=== PATIENT | female | born 1975 | race Caucasian/White ===

== ENCOUNTER 2018-04-14 15:16 | Inpatient (IN) ==
[2018-04-14] MEDS ORDERED: ALBUTEROL 2.5mg/3ml (0.083%) NEB AEROSOL ONE (15:36)
[2018-04-14] MEDS ORDERED: METHYLPREDNISOLONE SOD SUCC 125mg/2ml INJECTION IVP ONE (15:36)
--- NOTE | 2018-04-14 15:41 | Emergency Department Report ---
SOB HPI - General Chief Complaint: Shortness of Breath/Dyspnea Stated Complaint: soa, cp Source: patient Mode of arrival: ambulatory Limitations: no limitations - History of Present Illness PT presents with a long standing asthma history and SOA for about 2 months. Pt has had several recent hospitalizations for the same with last being 1-2 weeks ago in [place]. PT reports she has been using her nebulizer every hour today without relief. She is allergic to Prednisone but can take Solu medrol. She states she feels like her lungs are "filling up". Denies fever. Does have a productive cough. MD Complaint: shortness of breath, cough Severity: similar to previous episodes Consistency/Duration: constant Relieving factors: nothing Known history of: asthma Treatment prior to arrival: bronchodilator - Related Data Home Medications Medication Instructions Recorded Confirmed ALPRAZolam [Xanax] 0.5 mg PO BID PRN 04/14/18 04/14/18 Albuterol/Ipratropium [Duoneb] 1 unit AEROSOL Q4H PRN 04/14/18 04/14/18 Levothyroxine Tab [Synthroid] 88 mcg PO ACB 04/14/18 04/14/18 Montelukast [Singulair] 10 mg PO HS 04/14/18 04/14/18 Promethazine + Cod Liq [Phenergan 5 ml PO Q6H PRN 04/14/18 04/14/18 + Codeine] Allergies Allergy/AdvReac Type Severity Reaction Status Date / Time prednisone Allergy Mild Hives Verified 04/14/18 15:22 Review of Systems All systems: reviewed and negative except as stated Constitutional: Reports: as per HPI Respiratory: Reports: as per HPI Physical Exam - Limitations Limitations: no limitations - General General appearance: alert, in distress - Normal Exams: Head:: Normocephalic without trauma Eyes:: Pupils are PERRLA w/ EOMI Cardiovascular:: Regular rate and rhythm, without murmur or gallop, Pulses 2+ all extremities, capillary refill, <2 seconds all extremities Abdomen:: Bowel sounds positive, soft, non-tender, non-distended Musculoskeletal:: No tenderness, or deformity noted, good range of motion, all extremities Integumentary:: No rashes Neurological:: Patient is alert, and oriented, cranial nerves, motor/sensory/ cerebellar, exams w/o gross deficits, to observation Psychiatric:: Patient exhibits, appropriate attention, emotion and affect - Respiratory Respiratory exam: Present: respiratory distress, wheezes - Expanded Respiratory Exam Location: Left: wheezes, Right: wheezes, Upper: wheezes, Lower: wheezes Course Vital Signs Temperature 97.4 F 04/14/18 15:22 Pulse Rate 103 H 04/14/18 15:22 Respiratory Rate 48 H 04/14/18 15:22 Blood Pressure 126/84 04/14/18 15:22 Pulse Oximetry 94 04/14/18 15:22 Temperature 97.4 F 04/14/18 15:22 Pulse Rate 103 H 04/14/18 15:22 Respiratory Rate 48 H 04/14/18 15:22 Blood Pressure 126/84 04/14/18 15:22 Pulse Oximetry 94 04/14/18 15:22 Shortness of Breath/Dyspnea - [facility] Narrative Medical decision making narrative: PT extremely anxious and agitated. She states that she has no insurance and cannot afford her medications. She is concerned from her last admission where she was told her SpO2 drops when she sleeps and she cannot afford supplemental O2 and therefore fears going to sleep. She says every time she wakes up she cannot breath and coughs until she "wets herself". She is concerned she will be admitted again. She denies trying to obtain any assistance from case management to help her afford her medications. She is to be taking Xanax but cannot afford it. Pt has a smoking history bu tnot current. does smoke. Pt provided Ativan and is able to rest but when she wakes she returns to being anxious which in turn results n cough. Pt does continue to have wheezes after 3 nebulized treatments and Solu Medrol. Hospitalist notified and will admit. - Differential Diagnosis Likely: acute exacerbation of chronic obstructive airways disease, congestive heart failure, community acquired pneumonia, asthma with exacerbation - Lab Data Attestation: I reviewed the patient's lab results. Result diagrams: 04/17/18 04:04 04/18/18 04:08 - Radiology Data Attestation: I reviewed the patient's radiology results. Disposition Clinical Impression: COPD Asthma with exacerbation Qualifiers: Asthma severity: moderate Asthma persistence: persistent Qualified Code(s): J45.41 - Moderate persistent asthma with (acute) exacerbation Disposition: 02 To OBS [facility] Condition: Stable for Transport - Seen By: midlevel
[2018-04-14] MEDS ORDERED: ALBUTEROL/IPRATROPIUM 2.5mg-0.5mg/3ml NEB AEROSOL ONE ×2 (15:43→17:01)
[2018-04-14] MEDS: SALINE FLUSH 10ml SYRINGE IVF PRN ×3 (15:45→21:44)
--- OUTSIDE RECORDS SUMMARY | 2018-04-14 15:49 | External Medical Summary | Continuity of Care Document ---
:1975 Author Organization [facility] [employer] [facility] Address [address] [place], [place] [id number] Phone Care Team Providers Name Role Phone Kiki Russell APRN Unavailable Unavailable Allergies, Adverse Reactions, Alerts Substance Reaction Severity Status prednisolone hives Unknown Active No Known Drug Allergies Unknown Active Medications Medication Instructions Dosage Effective Dates Status Comments (start - stop) AZITHROMYCIN (unknown take 2 tablet by ORAL - Active strength) route every day for 1 day Xanax 0.5 mg tablet take 1 tablet by oral 0.5 MG - Active route 3 times every day levothyroxine 88 mcg take 1 tablet by oral 88 MCG - Active tablet route every day ALBUTEROL SULFATE inhale 3 milliliter - Active (unknown strength) by nebulization route 2 times every day Problems Condition Effective Dates (start - stop) Clinical Status Subserosal leiomyoma of uterus Menorrhagia Secondary dysmenorrhea Pelvic and perineal pain Intramural leiomyoma of uterus Enlarged Uterus Enlarged Uterus 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 700 Provider: visit,[facility], [facility], (chief uterusMenorrhagia 7 Medical [place] low [address] complaint) Secondary Center Silvana R, 1522, dysmenorrheaPelvi , Joseph [address] [facility], and perineal 120, [place], [place], pain Charity [place], [id number], [place], [address]. [place] [id number] tel: tel:[phone] , [place]. [id number] tel: [phone] Marck [place] Enlarged Uterus Sep-2 Nixon Referring In Womens Ultrasound 0-201 [place]. 700 Provider: Health MONA, 7 [facility] Silvana R, 1522, , [place] [address] [place], 120, [place], [place], Charity [place], [id number], [place], [address]. [place] [id number] tel: tel:[phone] , [place]. [id number] tel: [phone] Marck [place]ak Intramural Sep-1 Nixon Referring In Womens leiomyoma of 2-201 [place]. 700 Provider: Health MONA, uterusEnlarged [address] [place] [address] [facility]ed [facility], 1522, UterusEncntr for , Joseph [address] [facility], color maker formulator exam 120, [place], [place], (general) Charity [place], , (routine) [place], [address]. [place] abnormal [id number] tel: tel:[phone] findingsPap Smear , [place]. [id number] Screening, Cervix tel: [phone] Marck [place] Dec-1 Russell In Womens 1-200 [place]. Health MONA, 7 700 [facility] [address] [place], [place], 120, [id number], [place], [place], tel:[phone] , [place]. tel: [phone] Family History Family Member Diagnosis Age At Onset No family history of Epilepsy Paternal Grandmother Cancer, colon No family history of Diabetes Brother Hodgkin's Lymphoma No family history of Lung Disease No family history of Stroke Father Cardiovascular Disease No family history of Ovarian Cancer No family history of Osteoporosis Maternal Grandmother Cancer, breast Father Diabetes Uncle Brain Cancer Son Urological Disorder Father Hypertension No family history of Kidney Problems Father Prostate Cancer No family history of Thyroid Disorder Immunizations Vaccine Date Status Comments Unknown Payers Payer name Insurance type Covered green party ID Authorization(s) [facility] [id number] Social History Type Description Quantity Date Captured Alcohol Use Details No Caffeine Use Details Unknown Tobacco Use Status Smoking Status Former smoker Non-Smoking Tobacco Use : No Details Available : No Details Available Details Vital Signs Date / Height Weight BMI Pulse Blood Temperature Respiratory Body Head BMI Time: Rate Pressure Rate Surface Circumference percentile Area 232.80 101 132/92 2017 lbs /min mm[Hg] 2:49 PM Chief Complaint And Reason For Visit Most recent encounter only, dated '07/09/2017 14:00'. Report Review ( chief complaint) Reason For Referral Reason For Referral Unknown Plan Of Care Date Type Action Status Future Order: Radiology Order Pelvic Ultrasound ([id number]) Ordered Date Type Problem Goal Intervention Status Start Date Unknown. History Of Present Illness Encounter Date Complaint History Of Present Illness This patient has no known history of present illness Functional Status Encounter Date Functional Assessment Cognitive Assessment Unknown Medications Administered Medication Instructions Dosage Effective Dates (start - stop) Status Comments Drug Treatment Unknown Instructions Date Instruction Additional Information Unknown
--- OUTSIDE RECORDS SUMMARY | 2018-04-14 15:49 | External Medical Summary | Continuity of Care Document ---
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) - (routine) w abnormal findings Pap Smear Screening, Cervix - Subserosal leiomyoma of uterus Menorrhagia Secondary dysmenorrhea Pelvic and perineal pain Enlarged Uterus - Asthma Active Procedures Procedure Date Unknown Results Test Name Date and Time Measure Units Reference Range Abnormal Flag Comments Unknown Advance Directives Directive Yes / No Effective Date File Name Unknown Encounters Encounter Practice Location Reason(s) Diagnoses Date Provider Care Team Description For Visit Members Marck Moody Jun- Nixon Referring In [facility] leiomyoma of 0-201 [place]. 700 Provider: Health [facility], uterusMenorrhagia 7 Medical [place] [address] [facility] Silvana Conteh 1522, dysmenorrheaPelvi , [place] [address], c and perineal 120, [place], [place], pain Charity [place], [id number], [place], [address]. [place] [id number] tel: tel: , [place]. [id number] tel: [phone] Marck Pathak Enlarged Uterus Sep-2 Nixon Referring In Womens Ultrasound 0-201 [place]. 700 Provider: [facility], [address] [place] [address] Silvana Conteh 1522, , [address] [place], 120, [place], [place], Charity Path[place], [id number], [place], [address]. [place] [id number] tel: tel: , [place]. [id number] tel: [phone] Marck Pathak Sep-1 Nixon In Womens 8-[address] [place]. 700 [facility], [address] [place] [address] [place], [place], 120, [place], [place], [id number], [place], [place] tel: , [place]. tel: [phone] Marck Pathak Intramural Sep-1 Nixon Referring In Womens leiomyoma of 2-201 [place]. 700 Provider: [facility], uterusEnlarged [address] [place] [address] UterusEnlarged [place] Silvana Conteh, 1522, UterusEncntr for , [address], urogynecology physician exam 120, [place], [place], (general) Charity [place], [id number], (routine) [place], [address]. [place] abnormal tel: tel: findingsPap Smear , [place]. [id number] Screening, Cervix tel: [phone] Marck [place]ak Dec-1 Russell In Womens 1-[address] [place]. [facility], [address] [place] [address], [facility] [place], 120, [id number], [place], [place], tel:[phone] , [place]. tel: [phone] Family History Family Member Diagnosis Age At [...] Unknown Payers Payer name Insurance type Covered constitution party ID Authorization(s) [facility] [id number] Social History Type Description Quantity Date Captured Unknown Vital Signs Date / Height Weight BMI Pulse Blood Temperature Respiratory Body Head BMI Time: Rate Pressure Rate Surface Circumference percentile Area Unknown Chief Complaint And Reason For Visit Unknown Chief Complaint And Reason For Visit Reason For Referral Reason For Referral Unknown Plan Of Care Date Type Action Status Future Order: Radiology Order Pelvic Ultrasound ([id number]) Ordered Date Type Problem Goal Intervention Status [...]
--- NOTE | 2018-04-14 16:34 | XRay Report ---
Indication: soa XR chest 2V: Comparison: None Technique: PA and lateral chest Findings: Patient showed normal heart, mediastinum and central vascularity. Lungs are clear. No acute bony findings noted. Impression: Unremarkable two-view chest. .
[2018-04-14] MEDS ORDERED: ALBUTEROL 2.5mg/0.5ml (0.5%) NEB AEROSOL ONE (17:04)
[2018-04-14] MEDS ORDERED: ONDANSETRON 4 MG/2 ML INJECTION IVP PRN (20:21)
[2018-04-14] MEDS ORDERED: ACETAMINOPHEN 325 MG TABLET PO PRN (20:21)
[2018-04-14] MEDS ORDERED: SENNA + DOCUSATE TABLET PO PRN (20:21)
--- NOTE | 2018-04-14 20:31 | History & Physical Report ---
History of Present Illness Date: 04/14/18 Chief complaint: dyspnea/cough HPI: Sherry is a 42-year-old female with history of asthma and possible COPD. She reports having no formal pulmonary testing done in the past and history of tobacco use discontinued 1-1/2 years ago. She has had difficulty breathing for the past couple of months and has been hospitalized at least once in [place] a couple weeks ago. Respiratory symptoms have continued to worsen since discharge with increasing dyspnea, cough productive of "stringy green sputum", exertional dyspnea limiting activity to only short distances and experiencing dyspnea at 5 steps, increased use of nebulizers such that she is now using nebulized treatments hourly without relief of symptoms. She denies fevers or chills. She reports dyspnea worsens if she lays flat primarily because cough worsens; she's been unable to sleep due to cough and dyspnea. She reports that she feels as though she is fighting to get air for the past 2 weeks. On evaluation in the emergency room she was mildly hypoxic with oxygen saturation dropping to 88% on room air and had persistent wheezing and cough despite nebulized treatments. Respiratory rate in the emergency room has been in the mid 30s and 40s at times and patient has had persistent low-grade tachycardia. She is admitted now for asthma exacerbation/status asthmaticus. Patient reports being allergic to prednisone indicating it causes mood swings and a rash. Review of Systems All systems PM: 10-point ROS was reviewed, no additional remarkable complaints except (no increasing in size in the right groin, a nodule in the left posterior scalp, headaches with ongoing cough. Remainder of review of systems negative or as per history of present illness.) Past Medical History Medical History: Medical History (Last Updated 04/14/18 @ 20:20 by Patsy Jimenez MD) Anxiety Asthma COPD (chronic obstructive pulmonary disease) Possible-no testing done Carpal tunnel syndrome of left wrist Hypothyroidism Medical History Updates: A1c 6.1 in recent past; possible tumor on her uterus which will require surgical intervention when respiratory status is stable Surgical History: section 1; bilateral tubal ligation Family History: Father-prostate cancer, thyroid cancer, hypertension, diabetes mellitus. Mother-rheumatoid arthritis, COPD. 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 Arcos Alternate [id number]'s Full code Medications Home Medications Medication Instructions Recorded Confirmed Type ALPRAZolam [Xanax] 0.5 mg PO BID PRN 04/14/18 04/14/18 History Albuterol/Ipratropium [Duoneb] 1 unit AEROSOL Q4H PRN 04/14/18 04/14/18 History Levothyroxine Tab [Synthroid] 88 mcg PO ACB 04/14/18 04/14/18 History Montelukast [Singulair] 10 mg PO HS 04/14/18 04/14/18 History Promethazine + Cod Liq [Phenergan 5 ml PO Q6H PRN 04/14/18 04/14/18 History + Codeine] Allergies Allergy/AdvReac Type Severity Reaction Status Date / Time prednisone Allergy Mild Hives Verified 04/14/18 15:22 Exam Vital Signs: Temperature 97.8 F 04/14/18 20:25 Pulse Rate 109 H 04/14/18 20:25 Respiratory Rate 22 04/14/18 20:25 Blood Pressure 118/58 04/14/18 20:25 Pulse Oximetry 93 -2 L 04/14/18 20:25 EXAM: General-anxious female, obese, coughing frequently, speaks in 2-3 words at a time HEENT-PERRL, EOMI without nystagmus, conjugate gaze, conjunctiva clear, sclera anicteric, facial structures symmetric, oropharynx clear, neck supple and without adenopathy Lungs-respirations moderately labored, diffuse inspiratory/expiratory wheezing, inspiratory effort triggers repetitive coughing Cardiac-regular rhythm, low-grade tachycardia, S1 and S2 Abd-obese, soft, nontender, bowel sounds diminished Ext-without edema Skin-without generalized rash although there are scars on the abdomen suggesting old freed or prior abscesses; benign-appearing nevus in the right groin Neuro-cranial nerves 3-12 intact, motor tone/power within normal limits, sensation intact 4 extremities Psych-anxious, apprehensive, cooperative Results - Labs CBC & Chem 7: 04/14/18 15:52 04/14/18 15:52 Labs: Liver enzymes unremarkable - Imaging and Cardiology Chest x-ray Status: image reviewed by me (CATALINA) Assessment and Plan (1) Status asthmaticus Current visit: Yes Status: Acute Assessment and Plan: Impression: Status asthmaticus Asthma exacerbation Hypoxia Bronchitis Generalized anxiety disorder Hypothyroidism Hypertension, borderline per history Plan: Jeanine is admitted as an inpatient due to hypoxia with status asthmaticus. Solu-Medrol initiated in the emergency room and will be continued every 6 hours ; patient was advised that she may experience mood swings with any steroid but need to breathe overrides the side effects she previously experienced with prednisone. Continue aggressive breathing treatments with albuterol/ipratropium; discussed with respiratory therapy. Pulmicort twice daily in conjunction with nebulized treatments. Sputum culture. May benefit from formal pulmonary testing or pulmonary consultation if symptoms do not brake quickly. Supplemental oxygen as needed. May initiate a Vapotherm on a trial basis to determine if it decreases work of breathing and allows patient to rest. Continue alprazolam and levothyroxine per home doses. Discussed with ER provider; has been provided some supplemental history when patient seen in ER. Discussed with RT. DVT Prophylaxis: Lovenox GI Prophylaxis: Pepcid Resuscitation Status: Full Code - Physician Narrative Narrative: Date: 04/14/18 Time: 2027 Hospital Course Summary Disclaimer: The visit summary below is not to be considered part of the above Progress Note. Hospital Course: 04/14/18 Jeanine is admitted as an inpatient due to hypoxia with status asthmaticus. Solu-Medrol initiated in the emergency room and will be continued every 6 hours ; patient was advised that she may experience mood swings with any steroid but need to breathe overrides the side effects she previously experienced with prednisone. Continue aggressive breathing treatments with albuterol/ipratropium; discussed with respiratory therapy. Pulmicort twice daily in conjunction with nebulized treatments. Sputum culture. May benefit from formal pulmonary testing or pulmonary consultation if symptoms do not brake quickly. Supplemental oxygen as needed. May initiate a Vapotherm on a trial basis to determine if it decreases work of breathing and allows patient to rest. Continue alprazolam and levothyroxine per home doses.
[2018-04-14 20:32] VITALS: BMI 43.1
[2018-04-14] MEDS: ALBUTEROL 2.5mg/3ml (0.083%) NEB AEROSOL PRN (21:01)
[2018-04-14] MEDS: NS 1,000 ML IV SCH (21:41)
[2018-04-14] MEDS: MONTELUKAST 10 MG TABLET PO SCH (21:42)
[2018-04-14] MEDS: METHYLPREDNISOLONE SOD SUCC 125mg/2ml INJECTION IVP SCH (21:42)
[2018-04-14] MEDS: FAMOTIDINE 20 MG TABLET PO SCH (21:42)
[2018-04-14] MEDS: PROMETHAZINE/CODEINE ORAL LIQUID 5ml PO PRN (21:44)
[2018-04-15] MEDS: ALBUTEROL/IPRATROPIUM 2.5mg-0.5mg/3ml NEB AEROSOL SCH ×7 (01:21→22:53)
[2018-04-15] MEDS: METHYLPREDNISOLONE SOD SUCC 125mg/2ml INJECTION IVP SCH ×4 (03:07→21:13)
[2018-04-15] MEDS: LEVOTHYROXINE 88 MCG TABLET PO SCH (06:29)
[2018-04-15] MEDS: PROMETHAZINE/CODEINE ORAL LIQUID 5ml PO PRN ×3 (06:30→21:14)
[2018-04-15] MEDS: ALPRAZolam 0.5 MG TABLET PO PRN ×2 (06:43→20:21)
[2018-04-15] MEDS: ALBUTEROL 2.5mg/3ml (0.083%) NEB AEROSOL PRN (06:50)
[2018-04-15] MEDS ORDERED: ALBUTEROL/IPRATROPIUM 2.5mg-0.5mg/3ml NEB AEROSOL SCH (07:00)
[2018-04-15] MEDS: NS 1,000 ML IV SCH ×3 (08:12→23:36)
[2018-04-15] MEDS: FAMOTIDINE 20 MG TABLET PO SCH ×2 (09:39→21:12)
[2018-04-15] MEDS: ENOXAPARIN 40 MG/0.4 ML INJECTION SQ SCH (09:39)
--- NOTE | 2018-04-15 11:13 | Progress Note ---
- Date 04/15/18 Subjective: Sherry is seen this morning while resting in her bed. She reports that she is very tired but states that her breathing seems to be a little better today. She does admit to significant bouts of coughing, one of which was so severe this morning that she soiled her bed. She denies any fevers, chills, chest pain , abdominal pain, nausea, vomiting or dysuria. Her appetite is stable and bowels are moving. She remains tachypneic despite being on vapotherm. Labs today were relatively unremarkable with mild hypophosphoremia at 2.4 and hyperglycemia most likely secondary to steroids effect. Objective Vital signs: Temperature 96.1 F L 04/15/18 08:23 Pulse Rate 98 04/15/18 08:23 Respiratory Rate 24 04/15/18 08:23 Blood Pressure 126/66 04/15/18 08:23 Pulse Oximetry 97 04/15/18 08:23 Height/Weight/BMI: Weight 230 lb 9.656 oz Comments: resting in bed. - Constitutional Present: no acute distress, well nourished, well developed, morbidly obese, cooperative - Routine HEENT Exam Head: Present: normocephalic, atraumatic Eye: Present: PERRL. Absent: conjunctival icterus ENT: Present: mucous membranes moist, oropharynx clear - Routine Respiratory Exam Present: decreased breath sounds, prolonged expiratory phase, respiratory distress (mild), wheezes, diminished air movement Comments: Tachypnea - Routine Cardiovascular Exam Present: RRR, S1, S2 - Routine Abdominal Exam Present: soft, normoactive bowel sounds, non tender - Routine Extremities Exam Present: no edema, full ROM, pulses intact - Routine Back/Spine/Pelvis Exam Back/Spine: Present: full ROM. Absent: vertebral tenderness - Routine Musculoskeletal Exam Musculoskeletal: Present: no clubbing or cyanosis, moving extremities well - Routine Skin Exam Present: intact, dry, warm Comments: Afebrile. - Routine Neurological Exam Present: alert, oriented X3, moving all extremities, hearing grossly intact, normal speech - Routine Lymphatic Exam Lymphatic: Absent: lymphedema - Routine Psychiatric Exam Present: cooperative Results - Labs CBC & Chem 7: 04/14/18 15:52 04/15/18 04:09 Microbiology Results: Microbiology 04/14/18 21:47 Sputum, Expectorated Gram Stain - Final 04/14/18 21:47 Sputum, Expectorated Sputum Culture - Final Assessment and Plan (1) Status asthmaticus Current visit: Yes Status: Acute Assessment and Plan: Impression: Status asthmaticus Asthma exacerbation Hypoxia Bronchitis Generalized anxiety disorder Hypothyroidism Hypertension, borderline per history Plan - 04/15/18 Some improvement in breathing today as compared to yesterday. Significant episodes of nonproductive coughing. Continue respiratory cares including Solu-Medrol 125mg IV Q6H, DuoNeb and Pulmicort treatments and vapotherm. Supplemental oxygen as needed. Wean as able - patient does not use oxygen at home. May benefit from formal pulmonary testing or pulmonary consultation if symptoms do not break quickly. Continue alprazolam and levothyroxine per home doses. Hyperglycemia noted - most likely secondary to steroid effect. Monitor closely. Lovenox for DVT prophylaxis. Pepcid for GI protection and prophylaxis. Recheck labs in AM to monitor blood counts, electrolytes and renal function. DVT Prophylaxis: Lovenox GI Prophylaxis: Pepcid Resuscitation Status: Full Code - Time spent with patient Time with patient PN: 25 minutes - Physician Narrative Physician: Patsy Jimenez MD Narrative: Date: 04/15/18 Time: 1834 I have independently evaluated and examined this patient. I reviewed the chart, the patient's history, and the FINANCIAL [employer]IRE[employer] PL[employer] SPECIALIST/PA's documented findings as above. We discussed and formulated the assessment and plan as above with additions as below: Sherry was resting when seen earlier this afternoon. She reports decreased cough and wheezing with improvement in ability to breathe although she still coughing up thick sputum. She's been on Vapotherm overnight and prefers standard nasal cannula oxygen although RT felt there was clear benefit when she was converted to VT. NAD, resting comfortably Respirations nonlabored with significant improvement in airflow today, inspiration does not trigger cough, faint wheezing on expiration. Scheduled every 4 hours DuoNeb; patient required supplemental albuterol treatments twice overnight but has not needed additional treatment since 7 AM this morning. Plan social work consultation as patient has difficulty with medications due to cost and lack of insurance. [facility]. Sputum culture rejected due to multiple epithelial cells noted on original sample. Respiratory viral panel will be checked. Hospital Course Summary Disclaimer: The visit summary below is not to be considered part of the above Progress Note. Hospital Course: 04/14/18 Jeanine is admitted as an inpatient due to hypoxia with status asthmaticus. Solu-Medrol initiated in the emergency room and will be continued every 6 hours ; patient was advised that she may experience mood swings with any steroid but need to breathe overrides the side effects she previously experienced with prednisone. Continue aggressive breathing treatments with albuterol/ipratropium; discussed with respiratory therapy. Pulmicort twice daily in conjunction with nebulized treatments. Sputum culture. May benefit from formal pulmonary testing or pulmonary consultation if symptoms do not brake quickly. Supplemental oxygen as needed. May initiate a Vapotherm on a trial basis to determine if it decreases work of breathing and allows patient to rest. Continue alprazolam and levothyroxine per home doses. Plan - 04/15/18 Some improvement in breathing today as compared to yesterday. Significant episodes of nonproductive coughing. Continue respiratory cares including Solu-Medrol 125mg IV Q6H, DuoNeb and Pulmicort treatments and vapotherm. Supplemental oxygen as needed. Wean as able - patient does not use oxygen at home. May benefit from formal pulmonary testing or pulmonary consultation if symptoms do not brake quickly. Continue alprazolam and levothyroxine per home doses. Hyperglycemia noted - most likely secondary to steroid effect. Monitor closely. Lovenox for DVT prophylaxis. Pepcid for GI protection and prophylaxis. Recheck labs in AM to monitor blood counts, electrolytes and renal function.
[2018-04-15] MEDS: BUDESONIDE INH.SOLN 0.5mg/2ml NEB AEROSOL SCH ×2 (11:25→19:20)
[2018-04-15] MEDS: SODIUM CL 3% INHAL.SOLN 15ml NEB AEROSOL SCH ×2 (11:44→11:46)
[2018-04-15] MEDS ORDERED: PNEUMOCOCCAL 23 VACCINE 0.5ml INJECTION IM ONE (17:28)
[2018-04-15] MEDS: MONTELUKAST 10 MG TABLET PO SCH (21:12)
[2018-04-15] MEDS: INSULIN ASPART 100unit/ml INJECTION SQ PRN (21:13)
[2018-04-16] MEDS: METHYLPREDNISOLONE SOD SUCC 125mg/2ml INJECTION IVP SCH ×5 (03:05→22:44)
[2018-04-16] MEDS: NS 1,000 ML IV SCH ×2 (06:21→20:26)
[2018-04-16] MEDS: LEVOTHYROXINE 88 MCG TABLET PO SCH (06:22)
[2018-04-16] MEDS: ALBUTEROL/IPRATROPIUM 2.5mg-0.5mg/3ml NEB AEROSOL SCH ×4 (06:34→21:46)
[2018-04-16] MEDS: BUDESONIDE INH.SOLN 0.5mg/2ml NEB AEROSOL SCH ×2 (06:35→21:46)
[2018-04-16] MEDS: ALPRAZolam 0.5 MG TABLET PO PRN ×2 (06:57→17:36)
[2018-04-16] MEDS: ENOXAPARIN 40 MG/0.4 ML INJECTION SQ SCH (09:24)
[2018-04-16] MEDS: FAMOTIDINE 20 MG TABLET PO SCH ×2 (09:26→20:33)
--- NOTE | 2018-04-16 10:10 | Pulmonology Consult Note ---
History of Present Illness Consult date: 04/16/18 Requesting physician: Tatiana Charles Reason for consult: dyspnea, asthma Chief complaint: short of breath History of present illness: HPI: Sherry is a 42-year-old female with history of asthma and possible COPD. She reports having no formal pulmonary testing done in the past and history of tobacco use discontinued 1-1/2 years ago after a 15 pack-year history. She has had difficulty breathing for the past couple of months and has been hospitalized at least once in [place] a couple weeks ago. She states that for 2 months she cannot walk across the floor at home without having shortness of breath. She coughs and has a lot of mucus drainage from her sinuses, along with headaches and sinus pressure. she has been hospitalized at least 5 times in the past year for exacerbation of asthma. Her only home asthma med is neb albuterol. She thinks she needs a new nebulizer as well. Respiratory symptoms have continued to worsen since last discharge with increasing dyspnea, cough productive of "stringy green sputum", exertional dyspnea limiting activity to only short distances and experiencing dyspnea at 5 steps, increased use of nebulizers such that she is now using nebulized treatments hourly without relief of symptoms. She denies fevers or chills. She reports dyspnea worsens if she lays flat primarily because cough worsens; she's been unable to sleep due to cough and dyspnea. She reports that she feels as though she is fighting to get air for the past 2 weeks. On evaluation in the emergency room she was mildly hypoxic with oxygen saturation dropping to 88% on room air and had persistent wheezing and cough despite nebulized treatments. Respiratory rate in the emergency room has been in the mid 30s and 40s at times and patient has had persistent low-grade tachycardia. She is admitted now for asthma exacerbation/ status asthmaticus. Patient reports being allergic to prednisone indicating it causes mood swings and a rash. Review of Systems All systems PM: 10-point ROS was reviewed, no additional remarkable complaints except (no increasing in size in the right groin, a nodule in the left posterior scalp, headaches with ongoing cough. Remainder of review of systems negative or as per history of present illness.) Past Medical History Medical History: Medical History (Last Updated 04/14/18 @ 20:20 by Patsy Jimenez MD) Anxiety Asthma COPD (chronic obstructive pulmonary disease) Possible-no testing done Carpal tunnel syndrome of left wrist Hypothyroidism Medical History Updates: A1c 6.1 in recent past; possible tumor on her uterus which will require surgical intervention when respiratory status is stable Surgical History: section 1; bilateral tubal ligation Family History: Father-prostate cancer, thyroid cancer, hypertension, diabetes mellitus. Mother-rheumatoid arthritis, COPD. 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[employer]) [facility] Medical History (Last Updated 04/14/18 @ 20:20 by Patsy Jimenez MD) Anxiety (Acute Medical) Asthma (Acute Medical) COPD (chronic obstructive pulmonary disease) (Acute Medical) Possible-no testing done Carpal tunnel syndrome of left wrist (Acute Medical) Hypothyroidism (Acute Medical) Medical History Updates: A1c 6.1 in recent past; possible tumor on her uterus which will require surgical intervention when respiratory status is stable Surgical History: section 1; bilateral tubal ligation - Social History Smoking status: Former smoker Packs-years: 10 Substance use type: does not use Alcohol intake frequency: does not drink 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[employer]) Medications Home Medications Medication Instructions Recorded Confirmed Type ALPRAZolam [Xanax] 0.5 mg PO BID PRN 04/14/18 04/14/18 History Albuterol/Ipratropium [Duoneb] 1 unit AEROSOL Q4H PRN 04/14/18 04/14/18 History Levothyroxine Tab [Synthroid] 88 mcg PO ACB 04/14/18 04/14/18 History Montelukast [Singulair] 10 mg PO HS 04/14/18 04/14/18 History Promethazine + Cod Liq [Phenergan 5 ml PO Q6H PRN 04/14/18 04/14/18 History + Codeine] Allergies Allergy/AdvReac Type Severity Reaction Status Date / Time prednisone Allergy Mild Hives Verified 04/14/18 15:22 Exam Vital signs: Temperature 97.5 F 04/16/18 07:29 Pulse Rate 95 04/16/18 07:29 Respiratory Rate 20 04/16/18 07:29 Blood Pressure 130/69 04/16/18 07:29 Pulse Oximetry 98 04/16/18 07:29 - Constitutional mild distress, obese - Routine HEENT Exam Head: Present: normocephalic, atraumatic Eye: Absent: conjunctival icterus Nose: moist mucous membranes - Routine Neck Exam Present: supple. Absent: JVD - Routine Respiratory Exam Present: accessory muscle use, prolonged expiratory phase, wheezes - Routine Cardiovascular Exam Present: RRR - Routine Abdominal Exam Present: soft. Absent: guarding - Routine Extremities Exam Absent: cyanosis, clubbing - Routine Skin Exam Absent: rash - Routine Neurological Exam Present: alert, oriented X3. Absent: motor deficit Results - Laboratory Findings CBC and BMP: 04/16/18 04:32 04/16/18 04:32 Abnormal lab findings: Abnormal Labs 04/15/18 04/16/18 04/16/18 04:09 04:32 04:32 WBC 20.0 H D RBC 3.99 L Hgb 11.8 L D Plt Count 446 H Neutrophils % (Manual) 87.0 H Lymphocytes % (Manual) 8.0 L Neutrophils # (Manual) 17.4 H Chloride 109 H 109 H Creatinine 0.6 L 0.6 L Glucose 169 H 148 H Phosphorus 2.4 L - Diagnostic Findings Chest x-ray: report reviewed Assessment and Plan (1) Acute hypoxemic respiratory failure Status: Acute Assessment and plan: Currently requiring Vapotherm, 25 LPM, FIO2 40%. Wean to HFNC as tolerated. Consider CTA given normal CXR Current Visit: Yes (2) Status asthmaticus Status: Acute Assessment and plan: Cannot rule out the possibility of asthma-COPD overlap syndrome. She did have a modest smoking history in the past. I agree with methylprednisolone 125 mg IV q6H Continue albuterol/iprat q4H, Budesonide 0.5 mg BID Current Visit: Yes (3) Sinusitis Status: Acute Assessment and plan: Recommend empiric antibiotics, 3rd gen cephalosporin or Amox/clav would be most appropriate. Recommend prolonged course (at least 14 days) This is likely contributing to recurring exacerbations May need ENT consult at some point Current Visit: Yes - Time Spent With Patient Total time spent is greater than 50% in coordination of care (as documented) at patient's floor/unit and/or counseling patient: 25 - 35 minutes
[2018-04-16] MEDS ORDERED: SALINE FLUSH 10ml SYRINGE ONE (12:39)
[2018-04-16] MEDS ORDERED: IOHEXOL 350mg/ml 75ml INJECTION ONE (12:39)
--- NOTE | 2018-04-16 13:02 | Progress Note ---
- Date 04/16/18 Subjective: The patient was seen this afternoon in her room. She states her breathing is a little bit better than when she came in. She continues to have a cough and occasionally has incontinence of urine from cough. She states she feels weak. She has a chronic frontal headache. She is eating and drinking okay. She has not had a bowel movement since admission. She states she alternates between constipation and diarrhea at home. She complains of a "knot" in her abdomen and points to the right upper quadrant. She states that area is tender and she notices this knot more so when she is standing up. She states she has been hospitalized 5 times this past year with shortness of breath and cough requiring oxygen. She does not have insurance and this has complicated her treatment course. She has not been able to work for the past several months due to dyspnea on exertion and recurrent hospitalizations. Objective Vital signs: Temperature 97.5 F 04/16/18 07:29 Pulse Rate 95 04/16/18 07:29 Respiratory Rate 24 04/16/18 10:12 Blood Pressure 130/69 04/16/18 07:29 Pulse Oximetry 98 04/16/18 10:12 Height/Weight/BMI: Weight 106.2 kg Comments: Afebrile, heart rate 95, respirations 20, blood pressure 130/69, O2 sat 98% on high flow nasal cannula flow rate of 25 and FiO2 of 40%. Respiratory rate is 20 Weight is 106.2 kg up from 103.5 kg on admission GEN-alert, oriented, mild respiratory distress, frequent cough HEENT-oropharynx is moist NECK-supple, no lymphadenopathy CV-regular rate and rhythm CHEST-wheezing throughout, occasional coarse breath sounds ABD-soft, obese, minimal tenderness in the right upper quadrant, no rebound or guarding, no masses, normal bowel sounds -no Sneed EXT-no edema NEURO-no focal deficits SKIN-warm and dry Results - Labs CBC & Chem 7: 04/16/18 04:32 04/16/18 04:32 Microbiology Results: Microbiology 04/14/18 21:47 Sputum, Expectorated Gram Stain - Final 04/14/18 21:47 Sputum, Expectorated Sputum Culture - Final Assessment and Plan (1) Status asthmaticus Current visit: Yes Status: Acute Assessment and Plan: Impression: Status asthmaticus Asthma exacerbation Possible COPD (family history of COPD and her 50-year-old sister and in her mother) Acute hypoxic respiratory failure Possible sinusitis Bronchitis Generalized anxiety disorder Hypothyroidism Hypertension, borderline per history Hyperglycemia secondary to steroids Hypophosphatemia Leukocytosis-occlusive secondary to steroids Plan - 04/16/18 The patient reports some mild improvement in breathing compared to admission. She continues to require Vapotherm with significant oxygen and high flow requirements. Dr. Kruse was consulted secondary to the patient's recurrent hospitalizations with hypoxia and probable asthma exacerbation. He did recommend CTA chest. He did recommend CT sinuses to rule out sinusitis, and if present treat for 2 weeks. He agreed with current steroid treatment. He recommended follow-up as an outpatient for formal pulmonary function tests and treatment of asthma +/- COPD. Consult case management regarding lack of insurance. Change to carb consistent diet. Recheck phosphorus today Continue Lovenox for DVT prophylaxis Continue to wean oxygen as tolerated Increase activity as tolerated DC IV fluids when taking by mouth well Repeat CBC and renal panel tomorrow. Discussed today with the patient, her nurse, and Dr. Kruse. DVT Prophylaxis: Lovenox GI Prophylaxis: Pepcid Resuscitation Status: Full Code - Physician Narrative Narrative: Date: 04/16/18 Time: 1258 Hospital Course Summary Disclaimer: The visit summary below is not to be considered part of the above Progress Note. Hospital Course: 04/14/18 Jeanine is admitted as an inpatient due to hypoxia with status asthmaticus. Solu-Medrol initiated in the emergency room and will be continued every 6 hours ; patient was advised that she may experience mood swings with any steroid but need to breathe overrides the side effects she previously experienced with prednisone. Continue aggressive breathing treatments with albuterol/ipratropium; discussed with respiratory therapy. Pulmicort twice daily in conjunction with nebulized treatments. Sputum culture. May benefit from formal pulmonary testing or pulmonary consultation if symptoms do not brake quickly. Supplemental oxygen as needed. May initiate a Vapotherm on a trial basis to determine if it decreases work of breathing and allows patient to rest. Continue alprazolam and levothyroxine per home doses. Plan - 04/15/18 Some improvement in breathing today as compared to yesterday. Significant episodes of nonproductive coughing. Continue respiratory cares including Solu-Medrol 125mg IV Q6H, DuoNeb and Pulmicort treatments and vapotherm. Supplemental oxygen as needed. Wean as able - patient does not use oxygen at home. May benefit from formal pulmonary testing or pulmonary consultation if symptoms do not brake quickly. Continue alprazolam and levothyroxine per home doses. Hyperglycemia noted - most likely secondary to steroid effect. Monitor closely. Lovenox for DVT prophylaxis. Pepcid for GI protection and prophylaxis. Recheck labs in AM to monitor blood counts, electrolytes and renal function.
--- NOTE | 2018-04-16 13:12 | CT Scan Report ---
Indication: hypoxia, asthma exacerbation, rule out PE, PROCEDURE: CT angio pulm emboli: Encounter: Initial Comparison: None. Findings: Technique: Following rapid administration of intravenous contrast, multiple contiguous helical axial slices were obtained from the level of the diaphragm to the level the thoracic inlet. This volumetric data set then served as the basis for further three-dimensional volume rendered reconstructions in sagittal and coronal planes. Automated Exposure Control and Iterative Reconstruction dose reducing techniques were utilized. FINDINGS: There is a trace amount of bibasilar somewhat linear atelectasis and/or scarring. There is no pulmonary embolism. The trachea and mainstem bronchi are patent. There is no consolidation, pleural effusion, or pneumothorax. There are no masses or nodules seen in the lung parenchyma. There is no axillary, hilar, or mediastinal lymphadenopathy. The heart size is normal. There is no pericardial effusion. The visualized portions of the thoracic aorta and major branch vessels of the aortic arch fills with contrast homogenously and are unremarkable. The visualized portions of the upper abdominal structures are grossly unremarkable. The visualized bones are unremarkable. IMPRESSION: Small amount of dependent atelectasis and/or scarring. No lobar consolidation or pleural effusion. No evidence for pulmonary embolus. .
--- NOTE | 2018-04-16 13:13 | CT Scan Report ---
Indication: rule out sinusitis, cough, hypoxia PROCEDURE: CT sinus wo con: Encounter: Initial Comparison: None. Three-dimensional volume rendered reconstructions were performed. Automated Exposure Control and Iterative Reconstruction dose reducing techniques were utilized. FINDINGS: The maxillary sinuses are clear. The frontal sinuses and ethmoid sinuses are clear. The sphenoidal sinuses are clear. The osseous nasal septum is deviated to the left anteriorly. There is no definite obstruction of the osteomeatal unit on either the left or right side. No definite bony destruction. The periorbital fat appears preserved. No definite disruption of the lamina papyracea. IMPRESSION: Moderate nasal septal deviation to the left anteriorly. No evidence for acute or chronic sinusitis. No evidence for bony destruction or osteomeatal unit obstruction. .
[2018-04-16] MEDS: PROMETHAZINE/CODEINE ORAL LIQUID 5ml PO PRN ×2 (13:15→20:31)
[2018-04-16] MEDS: AZITHROMYCIN 500 MG TABLET PO SCH (17:36)
[2018-04-16] MEDS: SALINE FLUSH 10ml SYRINGE IVF PRN (17:36)
[2018-04-16] MEDS: PHOSPHORUS 250 MG TABLET PO SCH ×2 (17:36→20:32)
[2018-04-16] MEDS ORDERED: ALPRAZolam 0.5 MG TABLET PO ONE (20:25)
[2018-04-16] MEDS: MONTELUKAST 10 MG TABLET PO SCH (20:32)
[2018-04-16] MEDS: INSULIN ASPART 100unit/ml INJECTION SQ PRN (20:34)
[2018-04-17] MEDS: SALINE FLUSH 10ml SYRINGE IVF PRN ×2 (02:27→03:54)
[2018-04-17] MEDS: METHYLPREDNISOLONE SOD SUCC 125mg/2ml INJECTION IVP SCH ×5 (03:52→23:16)
[2018-04-17] MEDS: LEVOTHYROXINE 88 MCG TABLET PO SCH (06:41)
[2018-04-17] MEDS: ALBUTEROL/IPRATROPIUM 2.5mg-0.5mg/3ml NEB AEROSOL SCH ×4 (07:50→20:10)
[2018-04-17] MEDS: BUDESONIDE INH.SOLN 0.5mg/2ml NEB AEROSOL SCH (07:50)
[2018-04-17] MEDS ORDERED: FUROSEMIDE 40 MG/4 ML INJECTION IVP ONE (08:24)
--- NOTE | 2018-04-17 08:31 | Progress Note ---
- Date 04/17/18 Subjective: The patient was seen this morning accompanied by her mother. The patient was very agitated last night and yelling at her on the phone. Per nurses notes, she threw the phone twice. Her mother stated to me last evening that she frequently becomes very anxious and agitated with steroids. Steroid dose was decreased. I gave her an additional Xanax last night and per nurse's notes, she received a one-time dose of lorazepam 0.5 mg IV for agitation and was monitored afterwards by the charge nurse. The patient states she didn't sleep well last night. She feels a little more short of breath this morning after oxygen was titrated down. She is currently on 15 L I flow nasal cannula with FiO2 of 35%. She states in general she just doesn't feel well and has pain all over when she coughs. Cough is mostly nonproductive. She states she felt edematous in her hands and feet. Objective Vital signs: Temperature 97.0 F 04/17/18 07:52 Pulse Rate 62 04/17/18 07:52 Respiratory Rate 24 04/17/18 07:52 Blood Pressure 145/89 H 04/17/18 07:52 Pulse Oximetry 97 04/17/18 07:52 Height/Weight/BMI: Weight 106.8 kg Comments: Weight is 106.8 up from 103.5 on admission Afebrile. Heart rate 62. Respirations 24. Blood pressure 145/89. O2 sat 97%. Flow Rate on Vapotherm decreased to 15 and FiO2 of 35%. GEN-alert, oriented, appears tired. Breathing appears to be comfortable HEENT-sclera anicteric, oropharynx is moist, she has a small ulcer in the floor of her mouth on the right. She states it's been there about a month. I did recommend that she follow-up with her dentist regarding this if it does not resolve in the next couple of weeks. NECK-supple CV-regular rate and rhythm CHEST-faint expiratory wheezes throughout ABD-soft, nontender with positive bowel sounds -no Sneed EXT-trace edema hands and feet NEURO-no focal deficits, alert and oriented SKIN-warm and dry Results - Labs CBC & Chem 7: 04/17/18 04:04 04/17/18 04:04 Labs: *Versus 3.4 today up from 2.2 yesterday Microbiology Results: Microbiology 04/14/18 21:47 Sputum, Expectorated Gram Stain - Final 04/14/18 21:47 Sputum, Expectorated Sputum Culture - Final - Impressions CTA chest 04/16/2018 IMPRESSION: Small amount of dependent atelectasis and/or scarring. No lobar consolidation or pleural effusion. No evidence for pulmonary embolus. CT sinuses 04/16/2018 IMPRESSION: Moderate nasal septal deviation to the left anteriorly. No evidence for acute or chronic sinusitis. No evidence for bony destruction or osteomeatal unit obstruction. Chest x-ray 04/17/2018 Type of Exam(s): XR chest 1V Reason for Exam(s): hypoxia, asthma, rule out pulm edema EXAM: XR chest 1V LOCATION OF DICTATION: [place] HISTORY: hypoxia, asthma, rule out pulm edema COMPARISON: No prior studies available for comparison. FINDINGS: The heart size is normal. The mediastinal configuration is within normal limits. Limited depth of inspiration with crowding of the interstitial lung markings. Mild bibasilar atelectasis suggested. There are no consolidating opacities or pleural effusions. There is no pneumothorax. The osseous structures are within normal limits for the patient's age. IMPRESSION: 1. The heart size is normal. 2. Limited depth of inspiration with crowding of the interstitial lung markings and basilar atelectasis suggested. Assessment and Plan (1) Status asthmaticus Current visit: Yes Status: Acute Assessment and Plan: Impression: Status asthmaticus Asthma exacerbation Possible COPD (family history of COPD and her 50-year-old sister and in her mother) Acute hypoxic respiratory failure Basilar atelectasis Bronchitis-sputum culture inadequate Generalized anxiety disorder-increased anxiety/agitation/poor sleep associated with steroids Hypothyroidism Hypertension, borderline per history Hyperglycemia secondary to steroids Hypophosphatemia-resolved with oral phosphate Leukocytosis-likely secondary to steroids Mild fluid overload Plan - 04/17/18 Patient continues to require Vapotherm but flow Rate and FiO2 were decreased has morning. Will monitor closely with continuous oximetry. Steroids were decreased asked night due to significant agitation. The patient was given additional doses of benzodiazepine last night for severe agitation. Azithromycin initiated yesterday 500 mg 3 days for bronchitis. No signs of pneumonia seen on CT a chest. No sinusitis seen on CT sinuses. We'll DC IV fluids regarding mild fluid overload. Give Lasix 40 mg IV 1. Chest x-ray does not show pulmonary edema. Dr. Ivey was consulted regarding the patient's increased anxiety and agitation. Patient reportedly stated to the nurse last night that she wanted to go to sleep for good and "I just want to ". Patient denies to me that she wants to . She states she has young children she needs to be present for. She states she is just angry at her for not being here in the hospital with her. Her mother is concerned that the patient has bipolar disorder because she has severe mood swings even when not on steroids. Increase activity as tolerated. Recheck renal panel tomorrow. The patient will need follow-up with Dr. Kruse as an outpatient for pulmonary function testing. - Physician Narrative Narrative: Date: 04/17/18 Time: 08 Hospital Course Summary Disclaimer: The visit summary below is not to be considered part of the above Progress Note. Hospital Course: 04/14/18 Jeanine is admitted as an inpatient due to hypoxia with status asthmaticus. Solu-Medrol initiated in the emergency room and will be continued every 6 hours ; patient was advised that she may experience mood swings with any steroid but need to breathe overrides the side effects she previously experienced with prednisone. Continue aggressive breathing treatments with albuterol/ipratropium; discussed with respiratory therapy. Pulmicort twice daily in conjunction with nebulized treatments. Sputum culture. May benefit from formal pulmonary testing or pulmonary consultation if symptoms do not brake quickly. Supplemental oxygen as needed. May initiate a Vapotherm on a trial basis to determine if it decreases work of breathing and allows patient to rest. Continue alprazolam and levothyroxine per home doses. Plan - 04/15/18 Some improvement in breathing today as compared to yesterday. Significant episodes of nonproductive coughing. Continue respiratory cares including Solu-Medrol 125mg IV Q6H, DuoNeb and Pulmicort treatments and vapotherm. Supplemental oxygen as needed. Wean as able - patient does not use oxygen at home. May benefit from formal pulmonary testing or pulmonary consultation if symptoms do not brake quickly. Continue alprazolam and levothyroxine per home doses. Hyperglycemia noted - most likely secondary to steroid effect. Monitor closely. Lovenox for DVT prophylaxis. Pepcid for GI protection and prophylaxis. Recheck labs in AM to monitor blood counts, electrolytes and renal function. Plan - 04/16/18 The patient reports some mild improvement in breathing compared to admission. She continues to require Vapotherm with significant oxygen and high flow requirements. Dr. Kruse was consulted secondary to the patient's recurrent hospitalizations with hypoxia and probable asthma exacerbation. He did recommend CTA chest. He did recommend CT sinuses to rule out sinusitis, and if present treat for 2 weeks. He agreed with current steroid treatment. He recommended follow-up as an outpatient for formal pulmonary function tests and treatment of asthma +/- COPD. Consult case management regarding lack of insurance. Change to carb consistent diet. Recheck phosphorus today Continue Lovenox for DVT prophylaxis Continue to wean oxygen as tolerated Increase activity as tolerated DC IV fluids when taking by mouth well Repeat CBC and renal panel tomorrow. Plan - 04/17/18 Patient continues to require Vapotherm but flow Rate and FiO2 were decreased has morning. Will monitor closely with continuous oximetry. Steroids were decreased asked night due to significant agitation. The patient was given additional doses of benzodiazepine last night for severe agitation. Azithromycin initiated yesterday 500 mg 3 days for bronchitis. No signs of pneumonia seen on CT a chest. No sinusitis seen on CT sinuses. We'll DC IV fluids regarding mild fluid overload. Give Lasix 40 mg IV 1. Check chest x-ray to rule out pulmonary edema. Dr. Ivey was consulted regarding the patient's increased anxiety and agitation. Patient reportedly stated to the nurse last night that she wanted to go to sleep for good and "I just want to ". Patient denies to me that she wants to . She states she has young children she needs to be present for. She states she is just angry at her for not being here in the hospital with her. Her mother is concerned that the patient has bipolar disorder because she has severe mood swings even when not on steroids. Increase activity as tolerated. Recheck renal panel tomorrow. The patient will need follow-up with Dr. Kruse as an outpatient for pulmonary function testing.
--- NOTE | 2018-04-17 08:48 | XRay Report ---
EXAM: XR chest 1V LOCATION OF DICTATION: [place] HISTORY: hypoxia, asthma, rule out pulm edema COMPARISON: No prior studies available for comparison. FINDINGS: The heart size is normal. The mediastinal configuration is within normal limits. Limited depth of inspiration with crowding of the interstitial lung markings. Mild bibasilar atelectasis suggested. There are no consolidating opacities or pleural effusions. There is no pneumothorax. The osseous structures are within normal limits for the patient's age. IMPRESSION: 1. The heart size is normal. 2. Limited depth of inspiration with crowding of the interstitial lung markings and basilar atelectasis suggested. .
--- NOTE | 2018-04-17 09:15 | Pulmonology Progress Note ---
Subjective Principal diagnosis: asthma exacerbation Interval history: Pt resting in bed, wakes to voice. States still with SOB and wheezing but slightly better. + cough with some sputum noted. Exam Vital signs: Temperature 97.0 F 04/17/18 07:52 Pulse Rate 62 04/17/18 07:52 Respiratory Rate 24 04/17/18 07:52 Blood Pressure 145/89 H 04/17/18 07:52 Pulse Oximetry 97 04/17/18 07:52 Inpatient Medications: Generic Name Dose Route Start Last Admin Trade Name Freq PRN Reason Stop Dose Admin Acetaminophen 325 - 650 mg 04/14/18 20:21 Tylenol PO Q5H PRN Discomfort Albuterol Sulfate 5 mg 04/14/18 20:26 04/15/18 06:50 Proventil Neb (0.083%) AEROSOL 5 mg Q2H PRN Administration Shortness of air/wheezing Albuterol/Ipratropium 3 ml 04/16/18 07:00 04/17/18 07:50 Duoneb AEROSOL 3 ml RTQID YOUNG Administration Alprazolam 0.5 mg 04/14/18 20:27 04/16/18 17:36 Xanax PO 0.5 mg BID PRN Administration Anxiety Azithromycin 500 mg 04/16/18 17:30 04/16/18 17:36 Zithromax PO 04/19/18 17:29 500 mg WS YOUNG Administration Budesonide 0.5 mg 04/15/18 07:00 04/17/18 07:50 Pulmicort Inhalation AEROSOL 0.5 mg RTBID YOUNG Administration Enoxaparin Sodium 40 mg 04/15/18 09:00 04/16/18 09:24 Lovenox SQ 40 mg DAILY YOUNG Administration Famotidine 20 mg 04/14/18 21:00 04/16/18 20:33 Pepcid PO 20 mg BID YOUNG Administration Insulin Aspart 1 - 5 unit 04/14/18 20:27 04/16/18 20:34 Novolog SQ 2 unit SS PRN Administration Hyperglycemia Protocol Levothyroxine Sodium 88 mcg 04/15/18 06:30 04/17/18 06:41 Synthroid PO 88 mcg ACB YOUNG Administration Lorazepam 0.5 mg 04/17/18 02:20 04/17/18 02:24 Ativan Inj IVP 0.5 mg O PRN Administration Methylprednisolone Sodium Succinate 62.5 mg 04/16/18 21:00 04/17/18 03:53 Solu-Medrol IVP 62.5 mg Q6HR YOUNG Administration Montelukast Sodium 10 mg 04/14/18 21:00 04/16/18 20:32 Singulair PO 10 mg HS YOUNG Administration Promethazine HCl/Codeine 5 ml 04/14/18 20:27 04/16/18 20:31 Phenergan + Codeine PO 5 ml Q6H PRN Administration Cough Senna/Docusate Sodium 2 tab 04/14/18 20:21 Senna Plus Tablet PO BID PRN Constipation Sodium Chloride 10 - 80 ml 04/14/18 15:36 04/17/18 03:54 Iv Flush IVF 10 ml PRN PRN Administration Flushing Sodium Phosphate 500 mg 04/16/18 17:30 04/16/18 20:32 K-Phos *Neutral* Tablet PO 04/17/18 12:01 500 mg WMHS YOUNG Administration Discontinued Medications Generic Name Dose Route Start Last Admin Trade Name Freq PRN Reason Stop Dose Admin Albuterol Sulfate 2.5 mg 04/14/18 15:36 04/14/18 15:30 Proventil Neb (0.083%) AEROSOL 04/14/18 15:37 2.5 mg O ONE Administration Albuterol Sulfate 2.5 mg 04/14/18 17:04 04/14/18 17:00 Proventil Neb (0.5%) AEROSOL 04/14/18 17:05 2.5 mg O ONE Administration Albuterol/Ipratropium 3 ml 04/14/18 15:43 04/14/18 15:25 Duoneb AEROSOL 04/14/18 15:44 3 ml O ONE Administration Albuterol/Ipratropium 3 ml 04/14/18 17:01 Duoneb AEROSOL 04/14/18 17:02 O ONE Albuterol/Ipratropium 3 ml 04/15/18 07:00 Duoneb AEROSOL RTQID YOUNG Albuterol/Ipratropium 3 ml 04/14/18 23:00 04/15/18 22:53 Duoneb AEROSOL 3 ml Q4H YOUNG Administration Alprazolam 0.5 mg 04/16/18 20:25 04/16/18 20:33 Xanax PO 04/16/18 20:26 0.5 mg ONE TIME ONE Administration Furosemide 40 mg 04/17/18 08:24 Lasix 40 Mg/4 Ml IVP 04/17/18 08:25 O ONE Sodium Chloride 1,000 mls @ 50 mls/hr 04/14/18 20:30 04/16/18 20:26 Normal Saline IV 75 mls/hr .Q20H YOUNG Administration Lorazepam 1 mg 04/14/18 17:01 04/14/18 17:08 Ativan Inj IVP 04/14/18 17:02 1 mg O ONE Administration Methylprednisolone Sodium Succinate 125 mg 04/14/18 15:36 04/14/18 15:48 Solu-Medrol IVP 04/14/18 15:37 125 mg O ONE Administration Methylprednisolone Sodium Succinate 125 mg 04/14/18 21:00 04/17/18 03:52 Solu-Medrol IVP Not Given Q6HR YOUNG Ondansetron HCl 4 mg 04/14/18 20:21 Zofran IVP Q6H PRN Nausea &/or vomiting Pneumococcal Polyvalent Vaccine 0.5 ml 04/15/18 17:28 Pneumovax 23 IM 04/15/18 17:29 .ONCE ONE Potassium Chloride 20 meq 04/17/18 08:24 K-Dur 20 Meq Tablet PO 04/17/18 08:25 O ONE Sodium Chloride 3 ml 04/15/18 07:00 04/15/18 11:46 Sodium Chloride 3% Inhal AEROSOL Not Given BID YOUNG - Constitutional no acute distress, obese, cooperative - Routine HEENT Exam Head: Present: normocephalic, atraumatic Eye: Present: EOMI, PERRL - Routine Neck Exam Present: supple, full ROM, trachea midline - Routine Respiratory Exam Present: wheezes. Absent: accessory muscle use, patient mechanically ventilated - Routine Cardiovascular Exam Present: RRR, S1, S2, no murmur - Routine Abdominal Exam Present: soft, normoactive bowel sounds - Routine Extremities Exam Present: no edema, non tender, full ROM - Routine Back/Spine/Pelvis Exam Back/Spine: Present: full ROM - Routine Skin Exam Present: intact, dry - Routine Neurological Exam Present: alert, oriented X3, CN II-XII intact - Routine Psychiatric Exam Present: normal thought process Results - Laboratory Findings Laboratory: Laboratory Results - last 48 hr 04/15/18 04/15/18 04/16/18 19:03 20:15 04:32 WBC 20.0 H D RBC 3.99 L Hgb 11.8 L D Hct 37.1 MCV 93.0 MCH 29.6 MCHC 31.8 RDW Std Deviation 48.1 Plt Count 446 H MPV 10.6 Immature Gran % (Auto) Not performed Neut % (Auto) Not performed Lymph % (Auto) Not performed [place] % (Auto) Not performed Eos % (Auto) Not performed Baso % (Auto) Not performed Neut # (Auto) Not performed Lymph # (Auto) Not performed [place] # (Auto) Not performed Eos # (Auto) Not performed Baso # (Auto) Not performed Abs Immat Gran (auto) Not performed Neutrophils % (Manual) 87.0 H Band Neutrophils % 5.0 Lymphocytes % (Manual) 8.0 L Monocytes % (Manual) Neutrophils # (Manual) 17.4 H Band Neutrophils # 1.0 Lymphocytes # (Manual) 1.6 Monocytes # (Manual) Anisocytosis 1+ RBC Morph Comment Abnormal Turbidity Sodium Potassium Chloride Carbon Dioxide Anion Gap BUN Creatinine GFR Calculation BUN/Creatinine Ratio Glucose Glucometer 207 Calculated Osmolality Calcium Phosphorus Icterus Index Albumin Specimen Hemolysis Adenovirus (PCR) Negative B.parapertussis DNA PCR Negative C. pneumoniae DNA (PCR) Negative Coronavirus OC43 (PCR) Negative Coronavirus HKU1 (PCR) Negative Coronavirus 229E (PCR) Negative Coronavirus NL63 (PCR) Negative Human Metapneumovir PCR Negative Influenza Type A (PCR) Negative Influenza Type B (PCR) Negative M. pneumoniae (PCR) Negative Parainfluenza 1 (PCR) Negative Parainfluenza 2 (PCR) Negative Parainfluenza 3 (PCR) Negative Parainfluenza 4 (PCR) Negative RSV (PCR) Negative Entero/Rhino (PCR) Negative 04/16/18 04/16/18 04/16/18 04:32 04:32 20:04 WBC RBC Hgb Hct MCV MCH MCHC RDW Std Deviation Plt Count MPV Immature Gran % (Auto) Neut % (Auto) Lymph % (Auto) Caldwell % (Auto) Eos % (Auto) Baso % (Auto) Neut # (Auto) Lymph # (Auto) [place]dwell # (Auto) Eos # (Auto) Baso # (Auto) Abs Immat Gran (auto) Neutrophils % (Manual) Band Neutrophils % Lymphocytes % (Manual) Monocytes % (Manual) Neutrophils # (Manual) Band Neutrophils # Lymphocytes # (Manual) Monocytes # (Manual) Anisocytosis RBC Morph Comment Turbidity < 20 Sodium 144 Potassium 4.3 Chloride 109 H Carbon Dioxide 25 Anion Gap 10 BUN 12.0 Creatinine 0.6 L GFR Calculation 110 BUN/Creatinine Ratio 20 Glucose 148 H Glucometer 207 Calculated Osmolality 280 Calcium 8.7 Phosphorus 2.2 L Icterus Index < 2 Albumin Specimen Hemolysis < 15 Adenovirus (PCR) B.parapertussis DNA PCR C. pneumoniae DNA (PCR) Coronavirus OC43 (PCR) Coronavirus HKU1 (PCR) Coronavirus 229E (PCR) Coronavirus NL63 (PCR) Human Metapneumovir PCR Influenza Type A (PCR) Influenza Type B (PCR) M. pneumoniae (PCR) Parainfluenza 1 (PCR) Parainfluenza 2 (PCR) Parainfluenza 3 (PCR) Parainfluenza 4 (PCR) RSV (PCR) Entero/Rhino (PCR) 04/17/18 04/17/18 04/17/18 04:04 04:04 05:49 WBC 14.5 H RBC 3.88 L Hgb 11.3 L Hct 36.1 MCV 93.0 MCH 29.1 MCHC 31.3 RDW Std Deviation 47.5 Plt Count 413 H MPV 10.5 Immature Gran % (Auto) Not performed Neut % (Auto) Not performed Lymph % (Auto) Not performed [place] % (Auto) Not performed Eos % (Auto) Not performed Baso % (Auto) Not performed Neut # (Auto) Not performed Lymph # (Auto) Not performed Caldwell # (Auto) Not performed Eos # (Auto) Not performed Baso # (Auto) Not performed Abs Immat Gran (auto) Not performed Neutrophils % (Manual) 87.0 H Band Neutrophils % 2.0 Lymphocytes % (Manual) 9.0 L Monocytes % (Manual) 2.0 Neutrophils # (Manual) 12.6 H Band Neutrophils # 0.3 Lymphocytes # (Manual) 1.3 Monocytes # (Manual) 0.3 Anisocytosis RBC Morph Comment Normal Turbidity < 20 Sodium 145 Potassium 4.3 Chloride 107 Carbon Dioxide 29 Anion Gap 9 BUN 16.0 Creatinine 0.6 L GFR Calculation 110 BUN/Creatinine Ratio 27 H Glucose 130 H Glucometer 123 Calculated Osmolality 282 H Calcium 8.5 Phosphorus 3.4 Icterus Index < 2 Albumin 3.4 L Specimen Hemolysis < 15 Adenovirus (PCR) B.parapertussis DNA PCR C. pneumoniae DNA (PCR) Coronavirus OC43 (PCR) Coronavirus HKU1 (PCR) Coronavirus 229E (PCR) Coronavirus NL63 (PCR) Human Metapneumovir PCR Influenza Type A (PCR) Influenza Type B (PCR) M. pneumoniae (PCR) Parainfluenza 1 (PCR) Parainfluenza 2 (PCR) Parainfluenza 3 (PCR) Parainfluenza 4 (PCR) RSV (PCR) Entero/Rhino (PCR) - Diagnostic Findings Chest x-ray: image reviewed (vascular congestion but possibly due to poor inspiratory effort.) Assessment and Plan (1) Acute hypoxemic respiratory failure Status: Acute Current Visit: Yes (2) Status asthmaticus Status: Acute Current Visit: Yes - Assessment and Plan Plan: Pt currently on VT 15Lpm, 35%, cont to wean to keep sats >90%. Currently on A/A QID, pulmicort BID and solumedrol 60mg q6. Still with wheezing noted but no distress. On azithro, WBC improving 20>14, afebrile. Ct sinuses were negative for acute or chronic sinusitis, CTA negative for DE, noted basilar atelectasis. Does have a Hx of smoking so question an overlap syndrome, would benefit from OP PFT once recovered. Will continue to follow. - Time Spent With Patient Total time spent is greater than 50% in coordination of care (as documented) at patient's floor/unit and/or counseling patient: less than 15 minutes
[2018-04-17] MEDS: PHOSPHORUS 250 MG TABLET PO SCH ×2 (09:28→11:34)
[2018-04-17] MEDS: FAMOTIDINE 20 MG TABLET PO SCH ×2 (09:29→23:17)
[2018-04-17] MEDS: ENOXAPARIN 40 MG/0.4 ML INJECTION SQ SCH (09:29)
[2018-04-17] MEDS: NS 1,000 ML IV SCH (09:32)
[2018-04-17] MEDS: INSULIN ASPART 100unit/ml INJECTION SQ PRN ×2 (10:30→23:15)
[2018-04-17] MEDS ORDERED: MORPHINE SULFATE 2mg INJECTION IVP PRN (11:27)
[2018-04-17] MEDS: NITROGLYCERIN 0.4 MG SUBLINGUAL TABLET SL PRN ×4 (11:34→13:43)
--- NOTE | 2018-04-17 11:56 | XRay Report ---
EXAM: XR chest 1V LOCATION OF DICTATION: [place] HISTORY: chest pain radiating to back COMPARISON: Compared to the same day chest x-ray and prior chest x-ray on April 14, 2018. FINDINGS: The heart size is normal. The mediastinal configuration is within normal limits. Limited depth of inspiration with some crowding of the interstitial lung markings and bibasilar atelectasis suggested. There are no developing consolidating opacities or pleural effusions. There is no pneumothorax. The osseous structures are within normal limits for the patient's age. IMPRESSION: 1. Limited depth of inspiration. There is bibasal atelectasis suggested. No developing consolidation. 2. The heart size is normal. .
--- NOTE | 2018-04-17 12:15 | Progress Note ---
Progress Note: I attempted to see patient, with mother at bedside. RN reported that she had complained of chest pain and had been administered nitro. Patient and mother did describe a hx of bipolar disorder symptoms. Patient states she has never seen a psychiatrist as she did not have insurance. Patient denies any plan/ intent to harm herself and lists her children as protective factors. I explained with them that medical stability is priority at this point and that steroids can exacerbate psychiatric symptoms. Patient continued to become more tearful/upset when discussing possible psychiatric treatments. I ended interview early given ongoing cardiology workup. Discussed with patient and mother that patient should not be able to leave AMA until full psychiatric interview is complete. Will likely recommend psychiatric inpatient stabilization though patient is resistant to this, may require state screen. I do not plan to discuss this with patient until she is medically stable. Will return tomorrow and attempt full interview. Would recommend lorazepam 0.5-1mg IV q 4-6 hrs prn agitation as long as respiratory sedation will not interfere with current respiratory status. Would not recommend antipsychotic use until patient is cleared from cardiology standpoint.
--- NOTE | 2018-04-17 13:45 | Cardiology Consult Note ---
<Naomy Prabhakar - Last Filed: 04/20/18 12:58> History of Present Illness Consult date: 04/17/18 Requesting physician: Tatiana Charles Consult reason: chest pain Chief complaint: chest pain History of present illness: Sherry is a 42-year-old female with history of asthma, possible COPD, 15 year history of tobacco use discontinued 1-1/2 years ago. She has had difficulty breathing for the past couple of months and has been hospitalized at least once in [place] a couple weeks ago. In the ED she was mildly hypoxic with oxygen saturation dropping to 88% on room air and had persistent wheezing and cough despite nebulized treatments. Respiratory rate in the ED was in the mid 30s and 40s at times and patient has had persistent low-grade tachycardia. She was admitted now for asthma exacerbation/status asthmaticus. She reportedly is allergic to prednisone indicating it causes mood swings and a rash. Earlier today she was upset with her and began having sternal and left chest pain, with radiation to left arm, states she had pressure and tightness radiating into the right neck and pounding in her head. Dr. Borges is consulted for further evaluation and we appreciate the consult. Review of Systems - Constitutional Constitutional: Absent: chills, fever(s) - EENMT Eyes: Absent: change in vision Balance: Absent: vertigo Mouth/Throat: Absent: sore throat - Cardiovascular Cardiovascular: Present: chest pain, dyspnea on exertion. Absent: palpitations - Respiratory Respiratory: Present: cough, dyspnea, dyspnea on exertion, chest congestion - Gastrointestinal Gastrointestinal: Absent: abdominal pain, diarrhea, nausea, vomiting - Genitourinary Genitourinary: Absent: dysuria - Integumentary/Breasts Integumentary: Absent: rash - Neurological Neurological: Absent: dizziness - Endocrine Endocrine: Absent: palpitations [facility] Clinic Medical History (Last Updated 04/14/18 @ 20:20 by Patsy Jimenez MD) Anxiety (Acute Medical) Asthma (Acute Medical) COPD (chronic obstructive pulmonary disease) (Acute Medical) Possible-no testing done Carpal tunnel syndrome of left wrist (Acute Medical) Hypothyroidism (Acute Medical) Medical History Updates: A1c 6.1 in recent past; possible tumor on her uterus which will require surgical intervention when respiratory status is stable Surgical History: section 1; bilateral tubal ligation Family History: Father-prostate cancer, thyroid cancer, hypertension, diabetes mellitus. Mother-rheumatoid arthritis, COPD. 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[employer]) Medications Home Medications Medication Instructions Recorded Confirmed Type ALPRAZolam [Xanax] 0.5 mg PO TID PRN 04/14/18 04/19/18 History Levothyroxine Tab [Synthroid] 88 mcg PO ACB 04/14/18 04/14/18 History Montelukast [Singulair] 10 mg PO HS 04/14/18 04/14/18 History Promethazine + Cod Liq [Phenergan 5 ml PO Q6H PRN 04/14/18 04/14/18 History + Codeine] Acetaminophen [Tylenol] 650 mg PO Q5H PRN tab 04/20/18 Rx Albuterol Neb (0.083%) [Proventil 5 mg AEROSOL Q2H PRN #120 each 04/20/18 Rx Neb (0.083%)] Budesonide/Formoterol Fumarate 2 puff INH BID #1 inhaler 04/20/18 Rx [Symbicort 160-4.5 Mcg Inhaler] Famotidine [Pepcid] 20 mg PO BID #60 tab 04/20/18 Rx Ipratropium [place] 1 dose AEROSOL QID PRN #120 bottle 04/20/18 Rx Lisinopril [Prinivil] 10 mg PO DAILY #30 tab 04/20/18 Rx PEG 3350 17gm PACKET [Miralax] 17 gm PO BID packet 04/20/18 Rx methylPREDNISolone [Medrol] 4 mg PO NOTE #30 tab 04/20/18 Rx Allergies Allergy/AdvReac Type Severity Reaction Status Date / Time prednisone Allergy Mild Hives Verified 04/14/18 15:22 Exam Vital signs: Temperature 96.3 F L 04/17/18 11:13 Pulse Rate 88 04/17/18 13:31 Respiratory Rate 16 04/17/18 11:13 Blood Pressure 179/91 H 04/17/18 13:31 Pulse Oximetry 96 04/17/18 13:31 - Constitutional mild distress, obese, cooperative - Routine HEENT Exam Head: Present: normocephalic ENT: Present: mucous membranes moist - Routine Neck Exam Absent: JVD, carotid bruit - Routine Chest/Breast/Axilla Exam Chest wall: Absent: tenderness - Routine Respiratory Exam Present: dyspnea, wheezes, diminished air movement. Absent: CTA bilaterally - Routine Cardiovascular Exam Present: RRR, no murmur, tachycardia - Routine Abdominal Exam Present: soft, non tender - Routine Extremities Exam Present: edema - Routine Skin Exam Present: intact, dry, warm - Routine Neurological Exam Present: alert, oriented X3 - Routine Psychiatric Exam Present: normal affect, normal thought process Results 04/17/18 04:04 04/17/18 04:04 Cardiac Enzymes 04/17/18 Range/Units 11:36 Troponin I < 0.012 (0-0.12) ng/ml CBC 04/17/18 Range/Units 04:04 WBC 14.5 H (4.5-11.0) T/MM3 RBC 3.88 L (4.00-5.20) M/MM3 Hgb 11.3 L (12-16) GM/DL Hct 36.1 (36-46) % Plt Count 413 H (130-400) T/MM3 Neut # (Auto) Not performed Lymph # (Auto) Not performed [place] # (Auto) Not performed Eos # (Auto) Not performed Baso # (Auto) Not performed Comprehensive Metabolic Panel 04/17/18 Range/Units 04:04 Sodium 145 (136-146) MEQ/L Potassium 4.3 (3.6-5) MEQ/L Chloride 107 (98-107) MEQ/L Carbon Dioxide 29 (22-30) MEQ/L BUN 16.0 (7-17) MG/DL Creatinine 0.6 L (0.7-1.2) mg/dL Glucose 130 H (65-110) MG/DL Calcium 8.5 (8.4-10.2) MG/DL Albumin 3.4 L (3.5-5.0) g/dL Intake and Output 04/16/18 04/17/18 04/17/18 22:59 06:59 14:59 Intake Total 1240 / 1240 0 / 0 982.5 / 982.5 Balance 1240 / 1240 0 / 0 982.5 / 982.5 Intake: IV 1000 / 1000 982.5 / 982.5 Ns 1,000 ml @ 50 mls/hr IV . 1000 / 1000 982.5 / 982.5 Q20H YOUNG Rx#:[id number] Oral 240 / 240 0 / 0 Other: # Voids 2 Weight 235 lb 7.259 oz Patient Weight 04/18/18 06:59 Weight 235 lb 7.259 oz - Imaging and Cardiology Imaging & Cardiology Narrative: Date of Exam: 04/17/18 Ordering Provider: Tatiana Charles MD Type of Exam(s): XR chest 1V Reason for Exam(s): hypoxia, asthma, rule out pulm edema EXAM: XR chest 1V LOCATION OF DICTATION: [place] HISTORY: hypoxia, asthma, rule out pulm edema COMPARISON: No prior studies available for comparison. FINDINGS: The heart size is normal. The mediastinal configuration is within normal limits. Limited depth of inspiration with crowding of the interstitial lung markings. Mild bibasilar atelectasis suggested. There are no consolidating opacities or pleural effusions. There is no pneumothorax. The osseous structures are within normal limits for the patient's age. IMPRESSION: 1. The heart size is normal. 2. Limited depth of inspiration with crowding of the interstitial lung markings and basilar atelectasis suggested. 04/17/18 13:49 04/17/18 13:50 Date of Exam: 04/17/18 Ordering Provider: Tatiana Charles MD Type of Exam(s): XR chest 1V Reason for Exam(s): chest pain radiating to back EXAM: XR chest 1V LOCATION OF DICTATION: [place] HISTORY: chest pain radiating to back COMPARISON: Compared to the same day chest x-ray and prior chest x-ray on April 14, 2018. FINDINGS: The heart size is normal. The mediastinal configuration is within normal limits. Limited depth of inspiration with some crowding of the interstitial lung markings and bibasilar atelectasis suggested. There are no developing consolidating opacities or pleural effusions. There is no pneumothorax. The osseous structures are within normal limits for the patient's age. IMPRESSION: 1. Limited depth of inspiration. There is bibasal atelectasis suggested. No developing consolidation. 2. The heart size is normal. EKG interpretations - EKG EKG results cardiology: sinus rhythm EKG shows: tachycardia - ME, pacemaker, normal Myocardial infarction: inferior ME (old age indeterminate), anterior ME (old age or indeterminate) Assessment and Plan - Assessment and Plan (1) Acute hypoxemic respiratory failure Status: Acute per attending (2) Precordial pain Status: Acute Not likely cardiac as it is reproducible to palpation, worse with cough or deep breath - not likely dissection as carotid, radial and pedal pulse are equal bilaterally - Trend serial troponin - EKG & repeat EKG without ischemic changes Hospital Course Summary Disclaimer: The visit summary below is not to be considered part of the above Progress Note. Hospital Course: 04/14/18 Jeanine is admitted as an inpatient due to hypoxia with status asthmaticus. Solu-Medrol initiated in the emergency room and will be continued every 6 hours ; patient was advised that she may experience mood swings with any steroid but need to breathe overrides the side effects she previously experienced with prednisone. Continue aggressive breathing treatments with albuterol/ipratropium; discussed with respiratory therapy. Pulmicort twice daily in conjunction with nebulized treatments. Sputum culture. May benefit from formal pulmonary testing or pulmonary consultation if symptoms do not brake quickly. Supplemental oxygen as needed. May initiate a Vapotherm on a trial basis to determine if it decreases work of breathing and allows patient to rest. Continue alprazolam and levothyroxine per home doses. Plan - 04/15/18 Some improvement in breathing today as compared to yesterday. Significant episodes of nonproductive coughing. Continue respiratory cares including Solu-Medrol 125mg IV Q6H, DuoNeb and Pulmicort treatments and vapotherm. Supplemental oxygen as needed. Wean as able - patient does not use oxygen at home. May benefit from formal pulmonary testing or pulmonary consultation if symptoms do not brake quickly. Continue alprazolam and levothyroxine per home doses. Hyperglycemia noted - most likely secondary to steroid effect. Monitor closely. Lovenox for DVT prophylaxis. Pepcid for GI protection and prophylaxis. Recheck labs in AM to monitor blood counts, electrolytes and renal function. Plan - 04/16/18 The patient reports some mild improvement in breathing compared to admission. She continues to require Vapotherm with significant oxygen and high flow requirements. Dr. Kruse was consulted secondary to the patient's recurrent hospitalizations with hypoxia and probable asthma exacerbation. He did recommend CTA chest. He did recommend CT sinuses to rule out sinusitis, and if present treat for 2 weeks. He agreed with current steroid treatment. He recommended follow-up as an outpatient for formal pulmonary function tests and treatment of asthma +/- COPD. Consult case management regarding lack of insurance. Change to carb consistent diet. Recheck phosphorus today Continue Lovenox for DVT prophylaxis Continue to wean oxygen as tolerated Increase activity as tolerated DC IV fluids when taking by mouth well Repeat CBC and renal panel tomorrow. Plan - 04/17/18 Patient continues to require Vapotherm but flow Rate and FiO2 were decreased has morning. Will monitor closely with continuous oximetry. Steroids were decreased asked night due to significant agitation. The patient was given additional doses of benzodiazepine last night for severe agitation. Azithromycin initiated yesterday 500 mg 3 days for bronchitis. No signs of pneumonia seen on CT a chest. No sinusitis seen on CT sinuses. We'll DC IV fluids regarding mild fluid overload. Give Lasix 40 mg IV 1. Check chest x-ray to rule out pulmonary edema. Dr. Ivey was consulted regarding the patient's increased anxiety and agitation. Patient reportedly stated to the nurse last night that she wanted to go to sleep for good and "I just want to ". Patient denies to me that she wants to . She states she has young children she needs to be present for. She states she is just angry at her for not being here in the hospital with her. Her mother is concerned that the patient has bipolar disorder because she has severe mood swings even when not on steroids. Increase activity as tolerated. Recheck renal panel tomorrow. The patient will need follow-up with Dr. Kruse as an outpatient for pulmonary function testing. <Helder Borges - Last Filed: 04/28/18 07:53> [facility] Patient Stated Medical History Peripheral Neuropathy Yes Other HEENT Yes: chronic hoarseness Asthma Yes Chronic Obstructive Pulmonary Yes Disease (COPD) Pneumonia Yes Fibroids Yes Clinic Medical History (Last Updated 04/14/18 @ 20:20 by Patsy Jimenez MD) Anxiety (Acute Medical) Asthma (Acute Medical) COPD (chronic obstructive pulmonary disease) (Acute Medical) Possible-no testing done Carpal tunnel syndrome of left wrist (Acute Medical) Hypothyroidism (Acute Medical) Exam Vital signs: Temperature 97.8 F 04/20/18 15:34 Pulse Rate 71 07/02/18 16:00 Respiratory Rate 18 04/20/18 16:02 Blood Pressure 151/91 H 04/20/18 15:34 Pulse Oximetry 94 04/20/18 16:02 Results 04/19/18 04:04 04/19/18 04:04 Assessment and Plan - Attestation Attestation Narrative: 04/28/18 07:53 Recommendation After examining the patient I agree with the above assessment. I am involved in the formulation of the patient's plan of care. - Assessment and Plan (1) Acute hypoxemic respiratory failure Status: Acute (2) Precordial pain Status: Acute Hospital Course Summary Disclaimer: The visit summary below is not to be considered part of the above Progress Note.
[2018-04-17] MEDS ORDERED: KETOROLAC 15 MG/ML INJECTION IVP PRN (14:19)
[2018-04-17] MEDS: ALPRAZolam 0.5 MG TABLET PO PRN (15:15)
[2018-04-17] MEDS: AZITHROMYCIN 500 MG TABLET PO SCH (18:01)
[2018-04-17] MEDS: MONTELUKAST 10 MG TABLET PO SCH (23:15)
[2018-04-18] MEDS: METHYLPREDNISOLONE SOD SUCC 125mg/2ml INJECTION IVP SCH ×4 (04:18→21:03)
[2018-04-18] MEDS: SALINE FLUSH 10ml SYRINGE IVF PRN ×3 (04:19→21:06)
[2018-04-18] MEDS: PROMETHAZINE/CODEINE ORAL LIQUID 5ml PO PRN ×3 (04:25→21:06)
[2018-04-18] MEDS: ALBUTEROL 2.5mg/3ml (0.083%) NEB AEROSOL PRN (04:32)
[2018-04-18] MEDS: LEVOTHYROXINE 88 MCG TABLET PO SCH (06:41)
[2018-04-18] MEDS: ENOXAPARIN 40 MG/0.4 ML INJECTION SQ SCH (09:11)
[2018-04-18] MEDS: FAMOTIDINE 20 MG TABLET PO SCH ×2 (09:13→21:05)
[2018-04-18] MEDS: BUDESONIDE INH.SOLN 0.5mg/2ml NEB AEROSOL SCH ×3 (09:15→20:09)
[2018-04-18] MEDS: ALBUTEROL/IPRATROPIUM 2.5mg-0.5mg/3ml NEB AEROSOL SCH ×4 (09:17→20:09)
--- NOTE | 2018-04-18 10:41 | Progress Note ---
- Date 04/18/18 Subjective: The patient was seen this morning in her room accompanied by her mother. The patient was sleeping comfortably and awoke without difficulties. She states she didn't sleep very well last night and had to have 2 extra breathing treatments. Her mood seems much better this morning. She received a when necessary dose of lorazepam last night and then again this morning. She denies any chest pain today. She has not had a bowel movement since admission and is willing to start MiraLAX. She denies abdominal pain or feelings of constipation. She states she has been eating and drinking well. She states her breathing seemed worse last night, but is better now. She asks if she will definitely need to go to a psychiatric facility when she leaves the hospital here. I told her that would be up to Dr. Ivey. She asked if she could be admitted to a local psychiatric facility so she could have visitors from family. Objective Vital signs: Temperature 97.1 F 04/18/18 09:00 Pulse Rate 65 04/18/18 09:00 Respiratory Rate 28 H 04/18/18 09:19 Blood Pressure 148/78 H 04/18/18 09:00 Pulse Oximetry 97 04/18/18 09:19 Height/Weight/BMI: Weight 108.2 kg Comments: Afebrile, heart rate 65, respirations 24-28, was as high as 40 last night. O2 sat 97% on 10 L high flow nasal cannula. Blood pressure 148/78 GEN-alert, oriented, no acute distress. Does not seem agitated or anxious this morning HEENT-oropharynx is moist NECK-supple CV-regular rate and rhythm. Good peripheral pulses in all 4 extremities CHEST-expiratory wheezes throughout. No chest wall tenderness at this time ABD-soft, obese, nontender with positive bowel sounds -no Sneed EXT-no edema NEURO-no focal deficits SKIN-warm and dry Results - Labs CBC & Chem 7: 04/17/18 04:04 04/18/18 04:08 Labs: Phosphorus is 2.4 BGM ranges from 123-243 Troponin normal 3 Microbiology Results: Microbiology 04/14/18 21:47 Sputum, Expectorated Gram Stain - Final 04/14/18 21:47 Sputum, Expectorated Sputum Culture - Final - Impressions Chest x-ray yesterday showed normal heart size. Limited depth of inspiration with crowding of the interstitial lung markings and basilar atelectasis suggested. No consolidating opacities or pleural effusions. No pneumothorax. Assessment and Plan (1) Status asthmaticus Current visit: Yes Status: Acute Assessment and Plan: Impression: Status asthmaticus Asthma exacerbation Possible COPD (family history of COPD and her 50-year-old sister and in her mother) Acute hypoxic respiratory failure-currently on 10 L high flow nasal cannula Basilar atelectasis Bronchitis-sputum culture inadequate Generalized anxiety disorder? Versus unspecified mood disorder-increased anxiety /agitation/poor sleep associated with steroids Hypothyroidism Hypertension, borderline per history Hyperglycemia secondary to steroids Hypophosphatemia-resolved with oral phosphate Leukocytosis-likely secondary to steroids Mild fluid overload-one time dose of Lasix given. IV fluids discontinued. Chest pain on 04/17/2018-troponin negative 3. Chest pain thought to be noncardiac. Dr. Borges did evaluate the patient. Constipation Plan - 04/18/18 Vapotherm was discontinued yesterday. The patient is currently on 10 L high flow nasal cannula. Continue Solu-Medrol 62.5 IV to 6 hours. Continue scheduled and when necessary breathing treatments Chest pain has resolved. Troponin was negative 3. EKG did not show any acute ST segment changes. Dr. Borges did evaluate the patient and did not think her chest pain was cardiac in nature. The patient was seen yesterday by Dr. Ivey briefly. The patient was having active chest pain at the time, and Dr. Ivey plans to reevaluate the patient. Fortunately, the patient's chest pain is not felt to be cardiac in nature and her chest pain should not inhibit her from receiving antipsychotics if needed. The patient's agitation seems better this morning, possibly related to IV Ativan and decrease in steroid dose. The patient seems willing to transfer to a psychiatric hospital when she is medically stable, if needed. Will discuss today with Dr Ivey. Continue oral phosphate replacement for hypophosphatemia. Continue when necessary insulin for hyperglycemia secondary to steroids MiraLAX for constipation Recheck CBC, renal panel, and magnesium tomorrow - Physician Narrative Narrative: Date: 04/18/18 Time: 1038 Hospital Course Summary Disclaimer: The visit summary below is not to be considered part of the above Progress Note. Hospital Course: 04/14/18 Jeanine is admitted as an inpatient due to hypoxia with status asthmaticus. Solu-Medrol initiated in the emergency room and will be continued every 6 hours ; patient was advised that she may experience mood swings with any steroid but need to breathe overrides the side effects she previously experienced with prednisone. Continue aggressive breathing treatments with albuterol/ipratropium; discussed with respiratory therapy. Pulmicort twice daily in conjunction with nebulized treatments. Sputum culture. May benefit from formal pulmonary testing or pulmonary consultation if symptoms do not brake quickly. Supplemental oxygen as needed. May initiate a Vapotherm on a trial basis to determine if it decreases work of breathing and allows patient to rest. Continue alprazolam and levothyroxine per home doses. Plan - 04/15/18 Some improvement in breathing today as compared to yesterday. Significant episodes of nonproductive coughing. Continue respiratory cares including Solu-Medrol 125mg IV Q6H, DuoNeb and Pulmicort treatments and vapotherm. Supplemental oxygen as needed. Wean as able - patient does not use oxygen at home. May benefit from formal pulmonary testing or pulmonary consultation if symptoms do not brake quickly. Continue alprazolam and levothyroxine per home doses. Hyperglycemia noted - most likely secondary to steroid effect. Monitor closely. Lovenox for DVT prophylaxis. Pepcid for GI protection and prophylaxis. Recheck labs in AM to monitor blood counts, electrolytes and renal function. Plan - 04/16/18 The patient reports some mild improvement in breathing compared to admission. She continues to require Vapotherm with significant oxygen and high flow requirements. Dr. Kruse was consulted secondary to the patient's recurrent hospitalizations with hypoxia and probable asthma exacerbation. He did recommend CTA chest. He did recommend CT sinuses to rule out sinusitis, and if present treat for 2 weeks. He agreed with current steroid treatment. He recommended follow-up as an outpatient for formal pulmonary function tests and treatment of asthma +/- COPD. Consult case management regarding lack of insurance. Change to carb consistent diet. Recheck phosphorus today Continue Lovenox for DVT prophylaxis Continue to wean oxygen as tolerated Increase activity as tolerated DC IV fluids when taking by mouth well Repeat CBC and renal panel tomorrow. Plan - 04/17/18 Patient continues to require Vapotherm but flow Rate and FiO2 were decreased has morning. Will monitor closely with continuous oximetry. Steroids were decreased asked night due to significant agitation. The patient was given additional doses of benzodiazepine last night for severe agitation. Azithromycin initiated yesterday 500 mg 3 days for bronchitis. No signs of pneumonia seen on CT a chest. No sinusitis seen on CT sinuses. We'll DC IV fluids regarding mild fluid overload. Give Lasix 40 mg IV 1. Check chest x-ray to rule out pulmonary edema. Dr. Ivey was consulted regarding the patient's increased anxiety and agitation. Patient reportedly stated to the nurse last night that she wanted to go to sleep for good and "I just want to ". Patient denies to me that she wants to . She states she has young children she needs to be present for. She states she is just angry at her for not being here in the hospital with her. Her mother is concerned that the patient has bipolar disorder because she has severe mood swings even when not on steroids. Increase activity as tolerated. Recheck renal panel tomorrow. The patient will need follow-up with Dr. Kruse as an outpatient for pulmonary function testing. Addendum entered and electronically signed by Tatiana Charles MD 04/17/18 19:50: The patient was seen multiple times today after my initial visit. She did have complaints of chest pain radiating through to her back. EKG initially showed concerns for possible old anterior and inferior LA but no acute ST-T changes. The patient was given nitroglycerin 2 and seemed to have some relief in her pain and then was able to sleep. She then later woke up and had pain again similar to her previous discomfort also associated this time with some numbness in her hands and around her mouth. Repeat EKG showed no acute ST-T changes. Troponins were obtained and are normal so far. Lungs revealed wheezes on exam. Cardiovascular reveals a regular rate and rhythm without murmur. The patient initially had elevated blood pressure but it did improve with Norvasc. The patient's pulses were equal in all 4 extremities. She had undergone CTA of the chest yesterday and no significant abnormalities were seen. She has remained on Lovenox daily for DVT prophylaxis. Dr. Borges was consulted regarding the patient's chest pain and he did not fill it was cardiac in nature. He felt it was more likely musculoskeletal and related to her frequent cough. Toradol was ordered as needed. Will finish serial cardiac enzymes. Dr. Ivey was consulted regarding the patient's agitation. She was unable to complete her exam since the patient was having chest pain and becoming more agitated discussing her psychiatric state. Dr. Ivey did recommend lorazepam IV if needed for agitation and close respiratory monitoring. She also stated that until she can complete her psychiatric evaluation, the patient may not leave the hospital AGAINST MEDICAL ADVICE. Dr. Ivey thinks the patient may require inpatient psychiatric hospitalization after she is medically stable.
[2018-04-18] MEDS: POLYETHYL GLYCOL 3350 17gm PACKET PO SCH ×2 (13:09→21:05)
[2018-04-18] MEDS: PHOSPHORUS 250 MG TABLET PO SCH ×3 (13:09→21:05)
[2018-04-18] MEDS: INSULIN ASPART 100unit/ml INJECTION SQ PRN ×2 (13:12→21:18)
--- NOTE | 2018-04-18 15:36 | 24 Hour Neuropsychiatic Eval ---
Date of Admission: 04/14/18 20:35 Chief complaint: "I feel like no one cares about me" History of Present Illness: Patient is a , unemployed 42-year-old female who was admitted to [facility] on 04/14/18 for dyspnea and found to be in acute respiratory failure, which has required steroids to treat. Since admission, she has had intermittent agitation, tearfulness and mood lability prompting a psych consult. She even threw objects out of frustration after admission. See note from 04/17 regarding initial brief interview, which was postponed until today as patient had taken nitroglycerin for chest pain. It is now believed that chest pain was not cardiac in nature. Yesterday, she and her mom gave a history of classic symptoms of both gissel and depression, exacerbated by steroid use but prior even present. This went back many years but patient has never sought psychiatric care due to lack of insurance. Patient is less agitated today but continues to be labile/tearful throughout interview. She reports being hospitalized for medical problems (she describes as "severe asthma") 6x over the past year, and feeling that no one cares about her or comes to visit her. She endorses sleeping "all the time" and not having any energy, feeling depressed, having morbid thoughts/SI (though states that her children are protective factors), and recurring nightmares about past encounters with men and bullying in school. She endorses feelings of worthlessness, helplessness and guilt over never being good enough. She denies any hx of HI, AVH. She denies any hx of psychiatric hospitalizations or suicide attempts. She is prescribed Xanax by PCP but denies overuse. Patient now agrees that psychiatric stabilization would be helpful as she doesn' t feel current state is manageable. She agrees to voluntary transfer; process of screen due to insurance status explained. Depression: Increased Anxiety, Increased Irritability, Crying Spells, Isolating Oneself From Friends and Family, Increased Fatigue, Loss of Energy, Sleeping More Than Usual, Feelings of Worthlessness, Feelings of Guilt, Recurrent Thoughts of or Suicide, Hopelessness, Unhappiness, Low Self Esteem [facility] Medical History (Last Updated 04/14/18 @ 20:20 by Patsy Jimenez MD) Anxiety (Acute Medical) Asthma (Acute Medical) COPD (chronic obstructive pulmonary disease) (Acute Medical) Possible-no testing done Carpal tunnel syndrome of left wrist (Acute Medical) Hypothyroidism (Acute Medical) Medical History Updates: A1c 6.1 in recent past; possible tumor on her uterus which will require surgical intervention when respiratory status is stable Surgical History: section 1; bilateral tubal ligation Family History: States that her father has been treated at [facility] but she is unsure of his diagnosis. 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 with 3 children (one is autistic). Lives in [place], [place]. 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 Denies any substance use. Review of Systems All systems: reviewed and no additional remarkable complaints except as stated - EENMT Balance: Absent: vertigo Mouth/Throat: Absent: sore throat - Respiratory Respiratory: Present: dyspnea (on O2 currently) - Musculoskeletal Musculoskeletal: Present: other (reports feeling "chronic body pain and weakness ") Mental Status Exam Vitals: Last Vital Signs Temp 97.1 F 04/18/18 15:01 Pulse 77 04/18/18 15:01 Resp 22 04/18/18 15:01 BP 132/72 04/18/18 15:01 Pulse Ox 98 04/18/18 15:01 Height: 1.55 m Weight: 108.2 kg - Mental Status Exam Muscle Strength/Tone: Normal (patient feels subjectively weak) Dressing: Other (Hospital gown, wearing O2) Grooming: Disheveled Attitude: Cooperative Motor Activity: Fidgety Eye Contact: Good Speech: Normal Volume: Normal Rhythm: Appropriate Rhythm Sensory: Alert Orientation: Oriented X4 Mood: Depressed, Anxious Affect: Manic, Tearful Rate of Thoughts: Pressured Thought Organization: Circumstantial, [place] Associations: Intact Abstract Reasoning: Poor abstract reasoning Thought Content: Ruminations, Hopelessness, Helplessness, Worthlessness, Somatic Concerns Perception/Psychotic: Perception Normal Language: Naming Intact Fund of Knowledge: Javier aware current events Memory: Grossly Intact Suicidal Ideation: Other (Endorses SI but denies intent due to having children) Homicidal Ideation: Denies Insight: Limited Judgement: Fair Impulse Control: Poor - Laboratory Result Diagrams: 04/17/18 04:04 04/18/18 04:08 Laboratory Results - last 24 hr 04/17/18 04/17/18 04/17/18 16:50 19:53 23:30 Turbidity Sodium Potassium Chloride Carbon Dioxide Anion Gap BUN Creatinine GFR Calculation BUN/Creatinine Ratio Glucose Glucometer 206 Calculated Osmolality Calcium Phosphorus Icterus Index Troponin I < 0.012 < 0.012 Albumin Specimen Hemolysis 27 H < 15 04/18/18 04/18/18 04/18/18 04:08 06:09 10:57 Turbidity < 20 Sodium 143 Potassium 3.8 Chloride 103 Carbon Dioxide 27 Anion Gap 13 BUN 23.0 H Creatinine 0.7 GFR Calculation 92 BUN/Creatinine Ratio 33 H Glucose 119 H Glucometer 162 212 Calculated Osmolality 280 Calcium 8.8 Phosphorus 2.4 L Icterus Index < 2 Troponin I Albumin 3.7 Specimen Hemolysis 16 04/18/18 15:00 Turbidity Sodium Potassium Chloride Carbon Dioxide Anion Gap BUN Creatinine GFR Calculation BUN/Creatinine Ratio Glucose Glucometer 155 Calculated Osmolality Calcium Phosphorus Icterus Index Troponin I Albumin Specimen Hemolysis Assessment and Plan (1) Bipolar disorder Qualifiers: Active/Remission status: currently active Current bipolar episode type: mixed Current episode severity: severe Psychotic features: without psychotic features Qualified Code(s): F31.63 - Bipolar disorder, current episode mixed, severe, without psychotic features Current visit: Yes Status: Acute SUSPECTED (2) Acute hypoxemic respiratory failure Current visit: Yes Status: Acute (3) Asthma with exacerbation Qualifiers: Asthma severity: moderate Asthma persistence: persistent Qualified Code(s ): J45.41 - Moderate persistent asthma with (acute) exacerbation Current visit: Yes Status: Acute Recommend inpatient psychiatric stabilization due to complex nature of patient' s medical condition and severity of symptoms. Patient is willing to be transferred to inpatient psychiatric hospital when medically stable. Discussed with Dr. Charles and RN that patient will require PV screen due to being uninsured. Please contact me if you have further questions/concerns; thank you for this consult.
[2018-04-18] MEDS: AZITHROMYCIN 500 MG TABLET PO SCH (17:38)
[2018-04-18] MEDS: MONTELUKAST 10 MG TABLET PO SCH (21:04)
[2018-04-19] MEDS: METHYLPREDNISOLONE SOD SUCC 125mg/2ml INJECTION IVP SCH ×4 (03:24→22:30)
[2018-04-19] MEDS: SALINE FLUSH 10ml SYRINGE IVF PRN ×2 (03:25→22:30)
[2018-04-19] MEDS: LEVOTHYROXINE 88 MCG TABLET PO SCH (06:38)
[2018-04-19] MEDS: ALBUTEROL/IPRATROPIUM 2.5mg-0.5mg/3ml NEB AEROSOL SCH ×4 (07:56→18:37)
[2018-04-19] MEDS: BUDESONIDE INH.SOLN 0.5mg/2ml NEB AEROSOL SCH ×2 (07:56→18:37)
[2018-04-19] MEDS: POLYETHYL GLYCOL 3350 17gm PACKET PO SCH ×2 (08:29→22:31)
[2018-04-19] MEDS: FAMOTIDINE 20 MG TABLET PO SCH ×2 (08:36→22:29)
[2018-04-19] MEDS: PHOSPHORUS 250 MG TABLET PO SCH ×4 (08:36→22:29)
[2018-04-19] MEDS: ENOXAPARIN 40 MG/0.4 ML INJECTION SQ SCH (08:36)
--- NOTE | 2018-04-19 17:06 | Progress Note ---
- Date 04/19/18 Subjective: The patient was seen this afternoon in her room. She is currently on room air and denies shortness of breath. She still has some occasional productive cough. She denies any chest pain. She is eating and drinking okay. She states she's had a couple of good bowel movements today and no longer feels constipated. She is urinating without difficulty. She is tearful and anxious about the next step and whether or not she will need inpatient psychiatric treatment. I discussed with her that we will be calling for a screening evaluation tomorrow if she is medically stable. Since we have been able to titrate off oxygen, it's likely that she will be medically stable tomorrow. Objective Vital signs: Temperature 97.7 F 04/19/18 15:38 Pulse Rate 67 04/19/18 16:00 Respiratory Rate 20 04/19/18 16:23 Blood Pressure 148/84 H 04/19/18 15:38 Pulse Oximetry 91 04/19/18 16:23 Rhythm: Normal Sinus Rhythm Height/Weight/BMI: Weight 107.9 kg Comments: Afebrile, O2 sat 91% on room air, heart rate 67, respirations 20, blood pressure 148/84 GEN-alert, oriented, no acute distress CV-regular rate and rhythm, occasional Ectopic beat CHEST-faint and expiratory wheezes ABD-soft, nontender with positive bowel sounds -no Sneed EXT-no edema NEURO-no focal deficits SKIN-warm and dry Results - Labs CBC & Chem 7: 04/19/18 04:04 04/19/18 04:04 Microbiology Results: Microbiology 04/14/18 21:47 Sputum, Expectorated Gram Stain - Final 04/14/18 21:47 Sputum, Expectorated Sputum Culture - Final Assessment and Plan (1) Status asthmaticus Current visit: Yes Status: Acute Assessment and Plan: Impression: Status asthmaticus-improved, able to titrate to room air this afternoon Asthma exacerbation Possible COPD (family history of COPD and her 50-year-old sister and in her mother) Acute hypoxic respiratory failure-improved, able to titrate to room air this afternoon Basilar atelectasis Bronchitis-sputum culture inadequate Generalized anxiety disorder? Versus unspecified mood disorder-increased anxiety /agitation/poor sleep associated with steroids Hypothyroidism Hypertension, borderline per history Hyperglycemia secondary to steroids Hypophosphatemia-resolved with oral phosphate Leukocytosis-likely secondary to steroids Mild fluid overload-one time dose of Lasix given. IV fluids discontinued. Chest pain on 04/17/2018-troponin negative 3. Chest pain thought to be noncardiac. Dr. Borges did evaluate the patient. Constipation-resolved Plan - 04/18/18 Vapotherm was discontinued 04/17/2018. In the past hour, the patient was placed on room air and oxygen saturation is 91%. She states she is breathing comfortably and would like to go for walk. Will decrease Solu-Medrol to 62.5 mg IV twice a day. She is tearful and anxious about whether or not she will need to go to inpatient psychiatric treatment. Since she is uninsured, she is also worried about whether or not she will be able to obtain the medications she needs for her asthma when she is discharged. I discussed with her that we would involve case management tomorrow to help with this issue. Although the patient is tearful, she no longer appears agitated and mood does not appear to be as labile as it was when she was on higher dose steroids. Continue to monitor oximetry continuously Continue scheduled breathing treatments - Physician Narrative Narrative: Date: 04/19/18 Time: 1702 Hospital Course Summary Disclaimer: The visit summary below is not to be considered part of the above Progress Note. Hospital Course: 04/14/18 Jeanine is admitted as an inpatient due to hypoxia with status asthmaticus. Solu-Medrol initiated in the emergency room and will be continued every 6 hours ; patient was advised that she may experience mood swings with any steroid but need to breathe overrides the side effects she previously experienced with prednisone. Continue aggressive breathing treatments with albuterol/ipratropium; discussed with respiratory therapy. Pulmicort twice daily in conjunction with nebulized treatments. Sputum culture. May benefit from formal pulmonary testing or pulmonary consultation if symptoms do not brake quickly. Supplemental oxygen as needed. May initiate a Vapotherm on a trial basis to determine if it decreases work of breathing and allows patient to rest. Continue alprazolam and levothyroxine per home doses. Plan - 04/15/18 Some improvement in breathing today as compared to yesterday. Significant episodes of nonproductive coughing. Continue respiratory cares including Solu-Medrol 125mg IV Q6H, DuoNeb and Pulmicort treatments and vapotherm. Supplemental oxygen as needed. Wean as able - patient does not use oxygen at home. May benefit from formal pulmonary testing or pulmonary consultation if symptoms do not brake quickly. Continue alprazolam and levothyroxine per home doses. Hyperglycemia noted - most likely secondary to steroid effect. Monitor closely. Lovenox for DVT prophylaxis. Pepcid for GI protection and prophylaxis. Recheck labs in AM to monitor blood counts, electrolytes and renal function. Plan - 04/16/18 The patient reports some mild improvement in breathing compared to admission. She continues to require Vapotherm with significant oxygen and high flow requirements. Dr. Kruse was consulted secondary to the patient's recurrent hospitalizations with hypoxia and probable asthma exacerbation. He did recommend CTA chest. He did recommend CT sinuses to rule out sinusitis, and if present treat for 2 weeks. He agreed with current steroid treatment. He recommended follow-up as an outpatient for formal pulmonary function tests and treatment of asthma +/- COPD. Consult case management regarding lack of insurance. Change to carb consistent diet. Recheck phosphorus today Continue Lovenox for DVT prophylaxis Continue to wean oxygen as tolerated Increase activity as tolerated DC IV fluids when taking by mouth well Repeat CBC and renal panel tomorrow. Plan - 04/17/18 Patient continues to require Vapotherm but flow Rate and FiO2 were decreased has morning. Will monitor closely with continuous oximetry. Steroids were decreased asked night due to significant agitation. The patient was given additional doses of benzodiazepine last night for severe agitation. Azithromycin initiated yesterday 500 mg 3 days for bronchitis. No signs of pneumonia seen on CT a chest. No sinusitis seen on CT sinuses. We'll DC IV fluids regarding mild fluid overload. Give Lasix 40 mg IV 1. Check chest x-ray to rule out pulmonary edema. Dr. Ivey was consulted regarding the patient's increased anxiety and agitation. Patient reportedly stated to the nurse last night that she wanted to go to sleep for good and "I just want to ". Patient denies to me that she wants to . She states she has young children she needs to be present for. She states she is just angry at her for not being here in the hospital with her. Her mother is concerned that the patient has bipolar disorder because she has severe mood swings even when not on steroids. Increase activity as tolerated. Recheck renal panel tomorrow. The patient will need follow-up with Dr. Kruse as an outpatient for pulmonary function testing. Addendum entered and electronically signed by Tatiana Charles MD 04/17/18 19:50: The patient was seen multiple times today after my initial visit. She did have complaints of chest pain radiating through to her back. EKG initially showed concerns for possible old anterior and inferior VA but no acute ST-T changes. The patient was given nitroglycerin 2 and seemed to have some relief in her pain and then was able to sleep. She then later woke up and had pain again similar to her previous discomfort also associated this time with some numbness in her hands and around her mouth. Repeat EKG showed no acute ST-T changes. Troponins were obtained and are normal so far. Lungs revealed wheezes on exam. Cardiovascular reveals a regular rate and rhythm without murmur. The patient initially had elevated blood pressure but it did improve with Norvasc. The patient's pulses were equal in all 4 extremities. She had undergone CTA of the chest yesterday and no significant abnormalities were seen. She has remained on Lovenox daily for DVT prophylaxis. Dr. Borges was consulted regarding the patient's chest pain and he did not fill it was cardiac in nature. He felt it was more likely musculoskeletal and related to her frequent cough. Toradol was ordered as needed. Will finish serial cardiac enzymes. Dr. Ivey was consulted regarding the patient's agitation. She was unable to complete her exam since the patient was having chest pain and becoming more agitated discussing her psychiatric state. Dr. Ivey did recommend lorazepam IV if needed for agitation and close respiratory monitoring. She also stated that until she can complete her psychiatric evaluation, the patient may not leave the hospital AGAINST MEDICAL ADVICE. Dr. Ivey thinks the patient may require inpatient psychiatric hospitalization after she is medically stable. Plan - 04/18/18 Vapotherm was discontinued yesterday. The patient is currently on 10 L high flow nasal cannula. Continue Solu-Medrol 62.5 IV to 6 hours. Continue scheduled and when necessary breathing treatments Chest pain has resolved. Troponin was negative 3. EKG did not show any acute ST segment changes. Dr. Borges did evaluate the patient and did not think her chest pain was cardiac in nature. The patient was seen yesterday by Dr. Ivey briefly. The patient was having active chest pain at the time, and Dr. Ivey plans to reevaluate the patient. Fortunately, the patient's chest pain is not felt to be cardiac in nature and her chest pain should not inhibit her from receiving antipsychotics if needed. The patient's agitation seems better this morning, possibly related to IV Ativan and decrease in steroid dose. The patient seems willing to transfer to a psychiatric hospital when she is medically stable, if needed. Will discuss today with Dr Ivey. Continue oral phosphate replacement for hypophosphatemia. Continue when necessary insulin for hyperglycemia secondary to steroids MiraLAX for constipation Recheck CBC, renal panel, and magnesium tomorrow
[2018-04-19] MEDS: MONTELUKAST 10 MG TABLET PO SCH (22:29)
[2018-04-19] MEDS: PROMETHAZINE/CODEINE ORAL LIQUID 5ml PO PRN (22:29)
[2018-04-20] MEDS: LEVOTHYROXINE 88 MCG TABLET PO SCH (06:17)
[2018-04-20] MEDS: ALBUTEROL/IPRATROPIUM 2.5mg-0.5mg/3ml NEB AEROSOL SCH ×3 (07:52→16:01)
[2018-04-20] MEDS: BUDESONIDE INH.SOLN 0.5mg/2ml NEB AEROSOL SCH (07:58)
[2018-04-20] MEDS: PHOSPHORUS 250 MG TABLET PO SCH ×3 (09:10→18:27)
[2018-04-20] MEDS: ENOXAPARIN 40 MG/0.4 ML INJECTION SQ SCH (09:11)
[2018-04-20] MEDS: METHYLPREDNISOLONE SOD SUCC 125mg/2ml INJECTION IVP SCH (09:11)
[2018-04-20] MEDS: FAMOTIDINE 20 MG TABLET PO SCH (09:11)
[2018-04-20] MEDS: POLYETHYL GLYCOL 3350 17gm PACKET PO SCH (09:12)
[2018-04-20] MEDS: INSULIN ASPART 100unit/ml INJECTION SQ PRN ×2 (11:40→15:48)
--- NOTE | 2018-04-20 13:35 | Cardiology Progress Note ---
<Naomy Prabhakar M - Last Filed: 04/20/18 17:23> Subjective Principal diagnosis: asthma exacerbation Interval history: Sherry is seen in follow up for chest pain. She denies chest pain and states she is ready to go home. Explained to her that her BP is stillhigher than we would like but that Lisinopril should help. Exam Vital signs: Temperature 96.6 F L 04/20/18 11:45 Pulse Rate 78 04/20/18 11:45 Respiratory Rate 14 04/20/18 12:22 Blood Pressure 135/73 04/20/18 11:45 Pulse Oximetry 98 04/20/18 12:22 Inpatient Medications: Generic Name Dose Route Start Last Admin Trade Name Freq PRN Reason Stop Dose Admin Acetaminophen 325 - 650 mg 04/14/18 20:21 Tylenol PO Q5H PRN Discomfort Albuterol Sulfate 5 mg 04/14/18 20:26 04/18/18 04:32 Proventil Neb (0.083%) AEROSOL 5 mg Q2H PRN Administration Shortness of air/wheezing Albuterol/Ipratropium 3 ml 04/16/18 07:00 04/20/18 12:22 Duoneb AEROSOL 3 ml RTQID YOUNG Administration Budesonide 0.5 mg 04/15/18 07:00 04/20/18 07:58 Pulmicort Inhalation AEROSOL 0.5 mg RTBID YOUNG Administration Enoxaparin Sodium 40 mg 04/15/18 09:00 04/20/18 09:11 Lovenox SQ 40 mg DAILY YOUNG Administration Famotidine 20 mg 04/18/18 21:00 04/20/18 09:11 Pepcid PO 20 mg BID YOUNG Administration Insulin Aspart 1 - 5 unit 04/14/18 20:27 04/20/18 11:40 Novolog SQ 2 unit SS PRN Administration Hyperglycemia Protocol Ketorolac Tromethamine 15 mg 04/17/18 14:19 Toradol Inj IVP 04/22/18 14:19 Q6H PRN Pain Levothyroxine Sodium 88 mcg 04/15/18 06:30 04/20/18 06:17 Synthroid PO 88 mcg ACB YOUNG Administration Lorazepam 0.5 mg 04/17/18 19:47 04/20/18 11:41 Ativan Inj IVP 0.5 mg Q6H PRN Administration Agitation Methylprednisolone Sodium Succinate 62.5 mg 04/19/18 21:00 04/20/18 09:11 Solu-Medrol IVP 62.5 mg BID YOUNG Administration Montelukast Sodium 10 mg 04/14/18 21:00 04/19/18 22:29 Singulair PO 10 mg HS YOUNG Administration Morphine Sulfate 2 mg 04/17/18 11:27 04/17/18 14:12 Morphine Sulf 2 Mg Inj IVP 2 mg Q3-4HR PRN Administration Pain Nitroglycerin 0.4 mg 04/17/18 11:28 04/17/18 13:43 Nitrostat SL 0.4 mg Q5M PRN Administration Chest pain Polyethylene Glycol 17 gm 04/18/18 10:45 04/20/18 09:12 Miralax PO Not Given BID YOUNG Promethazine HCl/Codeine 5 ml 04/14/18 20:27 04/19/18 22:29 Phenergan + Codeine PO 5 ml Q6H PRN Administration Cough Senna/Docusate Sodium 2 tab 04/14/18 20:21 Senna Plus Tablet PO BID PRN Constipation Sodium Chloride 10 - 80 ml 04/14/18 15:36 04/19/18 22:30 Iv Flush IVF 10 ml PRN PRN Administration Flushing Sodium Phosphate 500 mg 04/18/18 12:00 04/20/18 11:40 K-Phos *Neutral* Tablet PO 04/21/18 11:59 500 mg WMHS YOUNG Administration Discontinued Medications Generic Name Dose Route Start Last Admin Trade Name Freq PRN Reason Stop Dose Admin Albuterol Sulfate 2.5 mg 04/14/18 15:36 04/14/18 15:30 Proventil Neb (0.083%) AEROSOL 04/14/18 15:37 2.5 mg O ONE Administration Albuterol Sulfate 2.5 mg 04/14/18 17:04 04/14/18 17:00 Proventil Neb (0.5%) AEROSOL 04/14/18 17:05 2.5 mg O ONE Administration Albuterol/Ipratropium 3 ml 04/14/18 15:43 04/14/18 15:25 Duoneb AEROSOL 04/14/18 15:44 3 ml O ONE Administration Albuterol/Ipratropium 3 ml 04/14/18 17:01 Duoneb AEROSOL 04/14/18 17:02 O ONE Albuterol/Ipratropium 3 ml 04/15/18 07:00 Duoneb AEROSOL RTQID YOUNG Albuterol/Ipratropium 3 ml 04/14/18 23:00 04/15/18 22:53 Duoneb AEROSOL 3 ml Q4H YOUNG Administration Alprazolam 0.5 mg 04/14/18 20:27 04/17/18 15:15 Xanax PO 0.5 mg BID PRN Administration Anxiety Alprazolam 0.5 mg 04/16/18 20:25 04/16/18 20:33 Xanax PO 04/16/18 20:26 0.5 mg ONE TIME ONE Administration Azithromycin 500 mg 04/16/18 17:30 04/18/18 17:38 Zithromax PO 04/19/18 17:29 500 mg WS YOUNG Administration Famotidine 20 mg 04/14/18 21:00 04/18/18 09:13 Pepcid PO 20 mg BID YOUNG Administration Furosemide 40 mg 04/17/18 08:24 04/17/18 09:29 Lasix 40 Mg/4 Ml IVP 04/17/18 08:25 40 mg O ONE Administration Sodium Chloride 1,000 mls @ 50 mls/hr 04/14/18 20:30 04/17/18 09:32 Normal Saline IV Infused .Q20H YOUNG Infusion Lorazepam 1 mg 04/14/18 17:01 04/14/18 17:08 Ativan Inj IVP 04/14/18 17:02 1 mg O ONE Administration Lorazepam 0.5 mg 04/17/18 02:20 04/17/18 02:24 Ativan Inj IVP 0.5 mg O PRN Administration Methylprednisolone Sodium Succinate 125 mg 04/14/18 15:36 04/14/18 15:48 Solu-Medrol IVP 04/14/18 15:37 125 mg O ONE Administration Methylprednisolone Sodium Succinate 125 mg 04/14/18 21:00 04/17/18 03:52 Solu-Medrol IVP Not Given Q6HR YOUNG Methylprednisolone Sodium Succinate 62.5 mg 04/16/18 21:00 04/19/18 15:27 Solu-Medrol IVP 62.5 mg Q6HR YOUNG Administration Ondansetron HCl 4 mg 04/14/18 20:21 Zofran IVP Q6H PRN Nausea &/or vomiting Pneumococcal Polyvalent Vaccine 0.5 ml 04/15/18 17:28 Pneumovax 23 IM 04/15/18 17:29 .ONCE ONE Potassium Chloride 20 meq 04/17/18 08:24 04/17/18 09:28 K-Dur 20 Meq Tablet PO 04/17/18 08:25 20 meq O ONE Administration Sodium Chloride 3 ml 04/15/18 07:00 04/15/18 11:46 Sodium Chloride 3% Inhal AEROSOL Not Given BID YOUNG Sodium Phosphate 500 mg 04/16/18 17:30 04/17/18 11:34 K-Phos *Neutral* Tablet PO 04/17/18 12:01 500 mg WMHS YOUNG Administration - Constitutional no acute distress, well nourished, obese, cooperative - Routine HEENT Exam Head: Present: normocephalic ENT: Present: mucous membranes moist - Routine Neck Exam Absent: JVD, carotid bruit - Routine Chest/Breast/Axilla Exam Chest wall: Absent: tenderness - Routine Respiratory Exam Present: CTA bilaterally, diminished air movement. Absent: dyspnea, wheezes - Routine Cardiovascular Exam Present: RRR, no murmur - Routine Abdominal Exam Present: soft, non tender - Routine Extremities Exam Present: no edema - Routine Skin Exam Present: intact, dry, warm - Routine Neurological Exam Present: alert, oriented X3 - Routine Psychiatric Exam Present: normal affect, normal thought process Results 04/19/18 04:04 04/19/18 04:04 Intake and Output 04/19/18 04/20/18 04/20/18 22:59 06:59 14:59 Intake Total 500 / 500 Balance 500 / 500 Intake: Oral 500 / 500 Other: # Voids 3 Weight 232 lb 2.348 oz Patient Weight 04/21/18 06:59 Weight 232 lb 2.348 oz Assessment and Plan - Assessment and Plan (1) Acute hypoxemic respiratory failure Status: Acute (2) Precordial pain Status: Acute - Assessment and Plan 04/17/18 Precordial pain Current visit: Yes Status: Acute Not likely cardiac as it is reproducible to palpation, worse with cough or deep breath - not likely dissection as carotid, radial and pedal pulse are equal bilaterally - Trend serial troponin - EKG & repeat EKG without ischemic changes Acute hypoxemic respiratory failure Current visit: Yes Status: Acute per attending 04/20/18 Suboptimal control of BP. - Start Lisinopril 10mg daily - Take and record BP 2-3 times a week and bring to follow up appointment with Dr. Borges in 2 weeks. Hospital Course Summary Disclaimer: The visit summary below is not to be considered part of the above Progress Note. Hospital Course: 04/14/18 Jeanine is admitted as an inpatient due to hypoxia with status asthmaticus. Solu-Medrol initiated in the emergency room and will be continued every 6 hours ; patient was advised that she may experience mood swings with any steroid but need to breathe overrides the side effects she previously experienced with prednisone. Continue aggressive breathing treatments with albuterol/ipratropium; discussed with respiratory therapy. Pulmicort twice daily in conjunction with nebulized treatments. Sputum culture. May benefit from formal pulmonary testing or pulmonary consultation if symptoms do not brake quickly. Supplemental oxygen as needed. May initiate a Vapotherm on a trial basis to determine if it decreases work of breathing and allows patient to rest. Continue alprazolam and levothyroxine per home doses. Plan - 04/15/18 Some improvement in breathing today as compared to yesterday. Significant episodes of nonproductive coughing. Continue respiratory cares including Solu-Medrol 125mg IV Q6H, DuoNeb and Pulmicort treatments and vapotherm. Supplemental oxygen as needed. Wean as able - patient does not use oxygen at home. May benefit from formal pulmonary testing or pulmonary consultation if symptoms do not brake quickly. Continue alprazolam and levothyroxine per home doses. Hyperglycemia noted - most likely secondary to steroid effect. Monitor closely. Lovenox for DVT prophylaxis. Pepcid for GI protection and prophylaxis. Recheck labs in AM to monitor blood counts, electrolytes and renal function. Plan - 04/16/18 The patient reports some mild improvement in breathing compared to admission. She continues to require Vapotherm with significant oxygen and high flow requirements. Dr. Kruse was consulted secondary to the patient's recurrent hospitalizations with hypoxia and probable asthma exacerbation. He did recommend CTA chest. He did recommend CT sinuses to rule out sinusitis, and if present treat for 2 weeks. He agreed with current steroid treatment. He recommended follow-up as an outpatient for formal pulmonary function tests and treatment of asthma +/- COPD. Consult case management regarding lack of insurance. Change to carb consistent diet. Recheck phosphorus today Continue Lovenox for DVT prophylaxis Continue to wean oxygen as tolerated Increase activity as tolerated DC IV fluids when taking by mouth well Repeat CBC and renal panel tomorrow. Plan - 04/17/18 Patient continues to require Vapotherm but flow Rate and FiO2 were decreased has morning. Will monitor closely with continuous oximetry. Steroids were decreased asked night due to significant agitation. The patient was given additional doses of benzodiazepine last night for severe agitation. Azithromycin initiated yesterday 500 mg 3 days for bronchitis. No signs of pneumonia seen on CT a chest. No sinusitis seen on CT sinuses. We'll DC IV fluids regarding mild fluid overload. Give Lasix 40 mg IV 1. Check chest x-ray to rule out pulmonary edema. Dr. Ivey was consulted regarding the patient's increased anxiety and agitation. Patient reportedly stated to the nurse last night that she wanted to go to sleep for good and "I just want to ". Patient denies to me that she wants to . She states she has young children she needs to be present for. She states she is just angry at her for not being here in the hospital with her. Her mother is concerned that the patient has bipolar disorder because she has severe mood swings even when not on steroids. Increase activity as tolerated. Recheck renal panel tomorrow. The patient will need follow-up with Dr. Kruse as an outpatient for pulmonary function testing. <Helder Borges - Last Filed: 05/06/18 12:41> Exam Vital signs: Temperature 97.8 F 04/20/18 15:34 Pulse Rate 71 04/20/18 16:00 Respiratory Rate 18 04/20/18 16:02 Blood Pressure 151/91 H 04/20/18 15:34 Pulse Oximetry 94 04/20/18 16:02 Inpatient Medications: Discontinued Medications Generic Name Dose Route Start Last Admin Trade Name Freq PRN Reason Stop Dose Admin Acetaminophen 325 - 650 mg 04/14/18 20:21 Tylenol PO Q5H PRN Discomfort Albuterol Sulfate 2.5 mg 04/14/18 15:36 04/14/18 15:30 Proventil Neb (0.083%) AEROSOL 04/14/18 15:37 2.5 mg O ONE Administration Albuterol Sulfate 2.5 mg 04/14/18 17:04 04/14/18 17:00 Proventil Neb (0.5%) AEROSOL 04/14/18 17:05 2.5 mg O ONE Administration Albuterol Sulfate 5 mg 04/14/18 20:26 04/18/18 04:32 Proventil Neb (0.083%) AEROSOL 5 mg Q2H PRN Administration Shortness of air/wheezing Albuterol/Ipratropium 3 ml 04/14/18 15:43 04/14/18 15:25 Duoneb AEROSOL 04/14/18 15:44 3 ml O ONE Administration Albuterol/Ipratropium 3 ml 04/14/18 17:01 Duoneb AEROSOL 04/14/18 17:02 O ONE Albuterol/Ipratropium 3 ml 04/15/18 07:00 Duoneb AEROSOL RTQID YOUNG Albuterol/Ipratropium 3 ml 04/14/18 23:00 04/15/18 22:53 Duoneb AEROSOL 3 ml Q4H YOUNG Administration Albuterol/Ipratropium 3 ml 04/16/18 07:00 04/20/18 16:01 Duoneb AEROSOL 3 ml RTQID YOUNG Administration Alprazolam 0.5 mg 04/14/18 20:27 04/17/18 15:15 Xanax PO 0.5 mg BID PRN Administration Anxiety Alprazolam 0.5 mg 04/16/18 20:25 04/16/18 20:33 Xanax PO 04/16/18 20:26 0.5 mg ONE TIME ONE Administration Azithromycin 500 mg 04/16/18 17:30 04/18/18 17:38 Zithromax PO 04/19/18 17:29 500 mg WS YOUNG Administration Budesonide 0.5 mg 04/15/18 07:00 04/20/18 07:58 Pulmicort Inhalation AEROSOL 0.5 mg RTBID YOUNG Administration Enoxaparin Sodium 40 mg 04/15/18 09:00 04/20/18 09:11 Lovenox SQ 40 mg DAILY YOUNG Administration Famotidine 20 mg 04/14/18 21:00 04/18/18 09:13 Pepcid PO 20 mg BID YOUNG Administration Famotidine 20 mg 04/18/18 21:00 04/20/18 09:11 Pepcid PO 20 mg BID YOUNG Administration Furosemide 40 mg 04/17/18 08:24 04/17/18 09:29 Lasix 40 Mg/4 Ml IVP 04/17/18 08:25 40 mg O ONE Administration Sodium Chloride 1,000 mls @ 50 mls/hr 04/14/18 20:30 04/17/18 09:32 Normal Saline IV Infused .Q20H YOUNG Infusion Insulin Aspart 1 - 5 unit 04/14/18 20:27 04/20/18 15:48 Novolog SQ 2 unit SS PRN Administration Hyperglycemia Protocol Ketorolac Tromethamine 15 mg 04/17/18 14:19 Toradol Inj IVP 04/22/18 14:19 Q6H PRN Pain Levothyroxine Sodium 88 mcg 04/15/18 06:30 04/20/18 06:17 Synthroid PO 88 mcg ACB YOUNG Administration Lorazepam 1 mg 04/14/18 17:01 04/14/18 17:08 Ativan Inj IVP 04/14/18 17:02 1 mg O ONE Administration Lorazepam 0.5 mg 04/17/18 02:20 04/17/18 02:24 Ativan Inj IVP 0.5 mg O PRN Administration Lorazepam 0.5 mg 04/17/18 19:47 04/20/18 11:41 Ativan Inj IVP 0.5 mg Q6H PRN Administration Agitation Methylprednisolone Sodium Succinate 125 mg 04/14/18 15:36 04/14/18 15:48 Solu-Medrol IVP 04/14/18 15:37 125 mg O ONE Administration Methylprednisolone Sodium Succinate 125 mg 04/14/18 21:00 04/17/18 03:52 Solu-Medrol IVP Not Given Q6HR YOUNG Methylprednisolone Sodium Succinate 62.5 mg 04/16/18 21:00 04/19/18 15:27 Solu-Medrol IVP 62.5 mg Q6HR YOUNG Administration Methylprednisolone Sodium Succinate 62.5 mg 04/19/18 21:00 04/20/18 09:11 Solu-Medrol IVP 62.5 mg BID YOUNG Administration Montelukast Sodium 10 mg 04/14/18 21:00 04/19/18 22:29 Singulair PO 10 mg HS YOUNG Administration Morphine Sulfate 2 mg 04/17/18 11:27 04/17/18 14:12 Morphine Sulf 2 Mg Inj IVP 2 mg Q3-4HR PRN Administration Pain Nitroglycerin 0.4 mg 04/17/18 11:28 04/17/18 13:43 Nitrostat SL 0.4 mg Q5M PRN Administration Chest pain Ondansetron HCl 4 mg 04/14/18 20:21 Zofran IVP Q6H PRN Nausea &/or vomiting Pneumococcal Polyvalent Vaccine 0.5 ml 04/15/18 17:28 Pneumovax 23 IM 04/15/18 17:29 .ONCE ONE Polyethylene Glycol 17 gm 04/18/18 10:45 04/20/18 09:12 Miralax PO Not Given BID YOUNG Potassium Chloride 20 meq 04/17/18 08:24 04/17/18 09:28 K-Dur 20 Meq Tablet PO 04/17/18 08:25 20 meq O ONE Administration Promethazine HCl/Codeine 5 ml 04/14/18 20:27 04/19/18 22:29 Phenergan + Codeine PO 5 ml Q6H PRN Administration Cough Senna/Docusate Sodium 2 tab 04/14/18 20:21 Senna Plus Tablet PO BID PRN Constipation Sodium Chloride 10 - 80 ml 04/14/18 15:36 04/19/18 22:30 Iv Flush IVF 10 ml PRN PRN Administration Flushing Sodium Chloride 3 ml 04/15/18 07:00 04/15/18 11:46 Sodium Chloride 3% Inhal AEROSOL Not Given BID YOUNG Sodium Phosphate 500 mg 04/16/18 17:30 04/17/18 11:34 K-Phos *Neutral* Tablet PO 04/17/18 12:01 500 mg WMHS YOUNG Administration Sodium Phosphate 500 mg 04/18/18 12:00 04/20/18 18:27 K-Phos *Neutral* Tablet PO 04/21/18 11:59 Not Given WMHS YOUNG Results 04/19/18 04:04 04/19/18 04:04 Assessment and Plan - Assessment and Plan (1) Acute hypoxemic respiratory failure Status: Acute (2) Precordial pain Status: Acute - Attestation Attestation Narrative: 05/06/18 12:41 Recommendation After examining the patient I agree with the above assessment. I am involved in the formulation of the patient's plan of care. Hospital Course Summary Disclaimer: The visit summary below is not to be considered part of the above Progress Note.
--- NOTE | 2018-04-20 15:08 | Discharge Summary ---
Discharge Information Date of admission: 04/14/18 20:35 Anticipated date of discharge: 04/20/18 Attending Physician: Tatiana Charles MD Primary care physician: Vasile Pina MD Consults: 04/16/18 08:05 Physician Consult [CONS] Routine Consulting Provider: Gamaliel Kruse Reason For Exam: asthma/copd exac 04/16/18 20:08 Physician Consult [CONS] Routine Consulting Provider: Amanda Ivey Reason For Exam: anxiety and agitation 04/17/18 11:48 Physician Consult [CONS] Routine Consulting Provider: Helder Borges - Discharge Diagnosis (1) Status asthmaticus Status: Acute Status asthmaticus-improved, room air at time of discharge Asthma exacerbation, improved Possible COPD (family history of COPD in her 50-year-old sister and in her mother) Acute hypoxic respiratory failure-improved, able to titrate to room air 2017 Basilar atelectasis Bronchitis-sputum culture inadequate Generalized anxiety disorder? Possible bipolar disorder, current episode mixed, severe, without psychotic features Hypothyroidism Hypertension, borderline per history Hyperglycemia secondary to steroids Hypophosphatemia-resolved with oral phosphate Leukocytosis-likely secondary to steroids Mild fluid overload-one time dose of Lasix given. IV fluids discontinued. Chest pain on 04/17/2018-troponin negative 3. Chest pain thought to be noncardiac. Dr. Borges did evaluate the patient. Constipation-resolved - Procedures Procedures: 04/17/2018 - Echocardiogram Doppler - report pending. - Laboratory Labs: Laboratory Tests 04/14/2018 04/14/2018 04/15/2018 15:52 15:52 4:09 WBC 10.6 RBC 4.53 Hgb 13.4 Hct 41.6 MCV 91.8 MCH 29.6 MCHC 32.2 RDW Std Deviation 47.5 Plt Count 423 H MPV 10.1 Immature Gran % (Auto) 0.2 Neut % (Auto) 57.8 Lymph % (Auto) 25.9 [place] % (Auto) 5.6 Eos % (Auto) 9.9 H Baso % (Auto) 0.6 Neut # (Auto) 6.2 Lymph # (Auto) 2.8 [place] # (Auto) 0.6 Eos # (Auto) 1.1 H Baso # (Auto) 0.1 Abs Immat Gran (auto) 0.02 Turbidity < 20 < 20 Sodium 145 143 Potassium 4.1 4.7 Chloride 109 H 109 H Carbon Dioxide 23 22 Anion Gap 13 12 BUN 11 12 Creatinine 0.7 0.6 L GFR Calculation 92 110 BUN/Creatinine Ratio 16 20 Glucose 98 169 H Glucometer Calculated Osmolality 278 279 Calcium 9.2 9.3 Phosphorus 2.4 L Magnesium 2.3 Total Bilirubin 0.4 Icterus Index < 2 < 2 AST 26 ALT 28 Alkaline Phosphatase 66 Troponin I Total Protein 7.4 Albumin 4.3 4.1 Globulin 3.1 Albumin/Globulin Ratio 1.4 Specimen Hemolysis 37 H < 15 04/15/2018 04/15/2018 04/15/2018 5:49 19:03 20:15 Glucometer 146 207 Adenovirus (PCR) Negative B.parapertussis DNA PCR Negative C. pneumoniae DNA (PCR) Negative Coronavirus OC43 (PCR) Negative Coronavirus HKU1 (PCR) Negative Coronavirus 229E (PCR) Negative Coronavirus NL63 (PCR) Negative Human Metapneumovir PCR Negative Influenza Type A (PCR) Negative Influenza Type B (PCR) Negative M. pneumoniae (PCR) Negative Parainfluenza 1 (PCR) Negative Parainfluenza 2 (PCR) Negative Parainfluenza 3 (PCR) Negative Parainfluenza 4 (PCR) Negative RSV (PCR) Negative Entero/Rhino (PCR) Negative 04/16/2018 04/16/2018 04/16/2018 4:32 4:32 4:32 WBC 20.0 H D RBC 3.99 L Hgb 11.8 L D Hct 37.1 MCV 93 MCH 29.6 MCHC 31.8 RDW Std Deviation 48.1 Plt Count 446 H MPV 10.6 Immature Gran % (Auto) Not performed Neut % (Auto) Not performed Lymph % (Auto) Not performed [place] % (Auto) Not performed Eos % (Auto) Not performed Baso % (Auto) Not performed Neut # (Auto) Not performed Lymph # (Auto) Not performed [place] # (Auto) Not performed Eos # (Auto) Not performed Baso # (Auto) Not performed Abs Immat Gran (auto) Not performed Neutrophils % (Manual) 87.0 H Band Neutrophils % 5 Lymphocytes % (Manual) 8.0 L Monocytes % (Manual) Neutrophils # (Manual) 17.4 H Band Neutrophils # 1 Lymphocytes # (Manual) 1.6 Monocytes # (Manual) Anisocytosis 1+ RBC Morph Comment Abnormal Turbidity < 20 Sodium 144 Potassium 4.3 Chloride 109 H Carbon Dioxide 25 Anion Gap 10 BUN 12 Creatinine 0.6 L GFR Calculation 110 BUN/Creatinine Ratio 20 Glucose 148 H Glucometer Calculated Osmolality 280 Calcium 8.7 Phosphorus 2.2 L Icterus Index < 2 Specimen Hemolysis < 15 04/16/2018 04/17/2018 04/17/2018 20:04 4:04 4:04 WBC 14.5 H RBC 3.88 L Hgb 11.3 L Hct 36.1 MCV 93 MCH 29.1 MCHC 31.3 RDW Std Deviation 47.5 Plt Count 413 H MPV 10.5 Immature Gran % (Auto) Not performed Neut % (Auto) Not performed Lymph % (Auto) Not performed [place] % (Auto) Not performed Eos % (Auto) Not performed Baso % (Auto) Not performed Neut # (Auto) Not performed Lymph # (Auto) Not performed [place] # (Auto) Not performed Eos # (Auto) Not performed Baso # (Auto) Not performed Abs Immat Gran (auto) Not performed Neutrophils % (Manual) 87.0 H Band Neutrophils % 2 Lymphocytes % (Manual) 9.0 L Monocytes % (Manual) 2 Neutrophils # (Manual) 12.6 H Band Neutrophils # 0.3 Lymphocytes # (Manual) 1.3 Monocytes # (Manual) 0.3 Anisocytosis RBC Morph Comment Normal Turbidity < 20 Sodium 145 Potassium 4.3 Chloride 107 Carbon Dioxide 29 Anion Gap 9 BUN 16 Creatinine 0.6 L GFR Calculation 110 BUN/Creatinine Ratio 27 H Glucose 130 H Glucometer 207 Calculated Osmolality 282 H Calcium 8.5 Phosphorus 3.4 Icterus Index < 2 Albumin 3.4 L Specimen Hemolysis < 15 04/17/2018 04/17/2018 04/17/2018 5:49 10:13 11:36 Glucometer 123 243 Troponin I < 0.012 Specimen Hemolysis < 15 04/17/2018 04/17/2018 04/17/2018 16:50 19:53 23:30 Glucometer 206 Troponin I < 0.012 < 0.012 Specimen Hemolysis 27 H < 15 04/18/2018 04/18/2018 04/18/2018 4:08 6:09 10:57 Turbidity < 20 Sodium 143 Potassium 3.8 Chloride 103 Carbon Dioxide 27 Anion Gap 13 BUN 23.0 H Creatinine 0.7 GFR Calculation 92 BUN/Creatinine Ratio 33 H Glucose 119 H Glucometer 162 212 Calculated Osmolality 280 Calcium 8.8 Phosphorus 2.4 L Icterus Index < 2 Albumin 3.7 Specimen Hemolysis 16 04/18/2018 04/18/2018 04/19/2018 15:00 19:51 4:04 WBC 12.4 H RBC 4.1 Hgb 11.9 L Hct 37.2 MCV 90.7 MCH 29 MCHC 32 RDW Std Deviation 44.2 Plt Count 417 H MPV 10.4 Immature Gran % (Auto) 1.3 H Neut % (Auto) 84.2 H Lymph % (Auto) 10.0 L [place] % (Auto) 4.2 Eos % (Auto) 0.2 Baso % (Auto) 0.1 Neut # (Auto) 10.5 H Lymph # (Auto) 1.2 [place] # (Auto) 0.5 Eos # (Auto) 0 Baso # (Auto) 0 Abs Immat Gran (auto) 0.16 H Glucometer 155 317 04/19/2018 04/19/2018 04/19/2018 4:04 6:11 21:00 Turbidity < 20 Sodium 143 Potassium 4.2 Chloride 101 Carbon Dioxide 33 H Anion Gap 9 BUN 17 Creatinine 0.7 GFR Calculation 92 BUN/Creatinine Ratio 24 Glucose 149 H Glucometer 137 144 Calculated Osmolality 280 Calcium 8.5 Phosphorus 3.7 Magnesium 2.6 H Total Bilirubin Icterus Index < 2 Albumin 3.3 L Specimen Hemolysis < 15 - Microbiology Microbiology 04/14/18 21:47 Sputum, Expectorated Gram Stain - Final Many epuithelial cells seen Many neutrophils seen Few gram positive cocci 04/14/18 21:47 Sputum, Expectorated Sputum Culture - Final - Radiology Radiology: Date of Exam: 04/14/18 Type of Exam(s): XR chest 2V Reason for Exam(s): soa Findings: Patient showed normal heart, mediastinum and central vascularity. Lungs are clear. No acute bony findings noted. Impression: Unremarkable two-view chest. Date of Exam: 06/28/18 Type of Exam(s): CT sinus wo con Reason for Exam(s): rule out sinusits, cough, hypoxia FINDINGS: The maxillary sinuses are clear. The frontal sinuses and ethmoid sinuses are clear. The sphenoidal sinuses are clear. The osseous nasal septum is deviated to the left anteriorly. There is no definite obstruction of the osteomeatal unit on either the left or right side. No definite bony destruction. The periorbital fat appears preserved. No definite disruption of the lamina papyracea. IMPRESSION: Moderate nasal septal deviation to the left anteriorly. No evidence for acute or chronic sinusitis. No evidence for bony destruction or osteomeatal unit obstruction. Date of Exam: 04/16/18 Type of Exam(s): CT angio pulm emboli Reason for Exam(s): hypoxia, asthma exac, rule out PE, Findings: Technique: Following rapid administration of intravenous contrast, multiple contiguous helical axial slices were obtained from the level of the diaphragm to the level the thoracic inlet. This volumetric data set then served as the basis for further three-dimensional volume rendered reconstructions in sagittal and coronal planes. Automated Exposure Control and Iterative Reconstruction dose reducing techniques were utilized. FINDINGS: There is a trace amount of bibasilar somewhat linear atelectasis and/or scarring. There is no pulmonary embolism. The trachea and mainstem bronchi are patent. There is no consolidation, pleural effusion, or pneumothorax. There are no masses or nodules seen in the lung parenchyma. There is no axillary, hilar, or mediastinal lymphadenopathy. The heart size is normal. There is no pericardial effusion. The visualized portions of the thoracic aorta and major branch vessels of the aortic arch fills with contrast homogenously and are unremarkable. The visualized portions of the upper abdominal structures are grossly unremarkable. The visualized bones are unremarkable. IMPRESSION: Small amount of dependent atelectasis and/or scarring. No lobar consolidation or pleural effusion. No evidence for pulmonary embolus. Date of Exam: 04/17/18 Type of Exam(s): XR chest 1V Reason for Exam(s): chest pain radiating to back FINDINGS: The heart size is normal. The mediastinal configuration is within normal limits. Limited depth of inspiration with some crowding of the interstitial lung markings and bibasilar atelectasis suggested. There are no developing consolidating opacities or pleural effusions. There is no pneumothorax. The osseous structures are within normal limits for the patient's age. IMPRESSION: 1. Limited depth of inspiration. There is bibasal atelectasis suggested. No developing consolidation. 2. The heart size is normal. - Date of Exam: 04/17/18 Type of Exam(s): XR chest 1V Reason for Exam(s): hypoxia, asthma, rule out pulm edema FINDINGS: The heart size is normal. The mediastinal configuration is within normal limits. Limited depth of inspiration with crowding of the interstitial lung markings. Mild bibasilar atelectasis suggested. There are no consolidating opacities or pleural effusions. There is no pneumothorax. The osseous structures are within normal limits for the patient's age. IMPRESSION: 1. The heart size is normal. 2. Limited depth of inspiration with crowding of the interstitial lung markings and basilar atelectasis suggested. ------ History of Present Illness HPI: Sherry is a 42-year-old female with history of asthma and possible COPD. She reports having no formal pulmonary testing done in the past and history of tobacco use discontinued 1-1/2 years ago. She has had difficulty breathing for the past couple of months and has been hospitalized at least once in [place] a couple weeks ago. Respiratory symptoms have continued to worsen since discharge with increasing dyspnea, cough productive of "stringy green sputum", exertional dyspnea limiting activity to only short distances and experiencing dyspnea at 5 steps, increased use of nebulizers such that she is now using nebulized treatments hourly without relief of symptoms. She denies fevers or chills. She reports dyspnea worsens if she lays flat primarily because cough worsens; she's been unable to sleep due to cough and dyspnea. She reports that she feels as though she is fighting to get air for the past 2 weeks. On evaluation in the emergency room she was mildly hypoxic with oxygen saturation dropping to 88% on room air and had persistent wheezing and cough despite nebulized treatments. Respiratory rate in the emergency room has been in the mid 30s and 40s at times and patient has had persistent low-grade tachycardia. She is admitted now for asthma exacerbation/status asthmaticus. Patient reports being allergic to prednisone indicating it causes mood swings and a rash. Objective Vital signs: Temperature 96.6 F L 04/20/18 11:45 Pulse Rate 78 04/20/18 11:45 Respiratory Rate 14 04/20/18 12:22 Blood Pressure 135/73 04/20/18 11:45 Pulse Oximetry 98 04/20/18 12:22 Rhythm: Normal Sinus Rhythm Height/Weight/BMI: Weight 232 lb 2.348 oz - Constitutional Present: no acute distress, well nourished, well developed, cooperative - Routine HEENT Exam Head: Present: normocephalic, atraumatic Eye: Present: PERRL. Absent: conjunctival icterus - Routine Respiratory Exam Present: decreased breath sounds, wheezes Comments: Faint expiratory wheezing - Routine Cardiovascular Exam Present: RRR, S1, S2 - Routine Abdominal Exam Present: soft, normoactive bowel sounds, non distended Comments: Obese - Routine Extremities Exam Present: no edema, full ROM, pulses intact - Routine Back/Spine/Pelvis Exam Back/Spine: Present: full ROM. Absent: vertebral tenderness - Routine Musculoskeletal Exam Musculoskeletal: Present: moving extremities well - Routine Skin Exam Present: intact, dry, warm Comments: Afebrile. - Routine Neurological Exam Present: alert, oriented X3, moving all extremities, hearing grossly intact, normal speech - Routine Lymphatic Exam Lymphatic: Absent: lymphedema - Routine Psychiatric Exam Present: normal thought process, cooperative Hospital Course This is a general summary of the patient's hospital course. For more details refer to the complete medical record. Hospital course: 04/14/18 Jeanine is admitted as an inpatient due to hypoxia with status asthmaticus. Solu-Medrol initiated in the emergency room and will be continued every 6 hours ; patient was advised that she may experience mood swings with any steroid but need to breathe overrides the side effects she previously experienced with prednisone. Continue aggressive breathing treatments with albuterol/ipratropium; discussed with respiratory therapy. Pulmicort twice daily in conjunction with nebulized treatments. Sputum culture. May benefit from formal pulmonary testing or pulmonary consultation if symptoms do not brake quickly. Supplemental oxygen as needed. May initiate a Vapotherm on a trial basis to determine if it decreases work of breathing and allows patient to rest. Continue alprazolam and levothyroxine per home doses. 04/15/18 Some improvement in breathing today as compared to yesterday. Significant episodes of nonproductive coughing. Continue respiratory cares including Solu-Medrol 125mg IV Q6H, DuoNeb and Pulmicort treatments and vapotherm. Scheduled every 4 hours DuoNeb. Patient required supplemental albuterol treatments twice overnight but has not needed additional treatment since 7 AM this morning. Supplemental oxygen as needed. Wean as able - patient does not use oxygen at home. May benefit from formal pulmonary testing or pulmonary consultation if symptoms do not brake quickly. Continue alprazolam and levothyroxine per home doses. Hyperglycemia noted - most likely secondary to steroid effect. Monitor closely. Lovenox for DVT prophylaxis. Pepcid for GI protection and prophylaxis. Recheck labs in AM to monitor blood counts, electrolytes and renal function. Plan social work consultation as patient has difficulty with medications due to cost and lack of insurance. [facility]. Sputum culture rejected due to multiple epithelial cells noted on original sample. Respiratory viral panel will be checked. Will consult Dr. Kruse, pulmonology, for further evaluation and treatment recommendations. Plan - 04/16/18 The patient reports some mild improvement in breathing compared to admission. She continues to require Vapotherm with significant oxygen and high flow requirements. Dr. Kruse was consulted secondary to the patient's recurrent hospitalizations with hypoxia and probable asthma exacerbation. He did recommend CTA chest which revealed small amount of dependent atelectasis and/or scarring without consolidation or effusion. He did recommend CT sinuses to rule out sinusitis, and if present, treat for [address] sinuses revealed moderate nasal septal deviation to the left anteriorly. No evidence for acute or chronic sinusitis. No evidence for bony destruction or osteomeatal unit obstruction. No treatment indicated. He agreed with current steroid treatment. He recommended follow-up as an outpatient for formal pulmonary function tests and treatment of asthma +/- COPD. Consult case management regarding lack of insurance. Change to carb consistent diet. Recheck phosphorus today Continue Lovenox for DVT prophylaxis Continue to wean oxygen as tolerated Increase activity as tolerated DC IV fluids when taking by mouth well Repeat CBC and renal panel tomorrow. Plan - 04/17/18 The patient was seen multiple times today after my initial visit. She did have complaints of chest pain radiating through to her back. EKG initially showed concerns for possible old anterior and inferior [place] but no acute ST-T changes. The patient was given nitroglycerin 2 and seemed to have some relief in her pain and then was able to sleep. She then later woke up and had pain again similar to her previous discomfort also associated this time with some numbness in her hands and around her mouth. Repeat EKG showed no acute ST-T changes. Troponins were obtained and are normal so far. Lungs revealed wheezes on exam. Cardiovascular reveals a regular rate and rhythm without murmur. The patient initially had elevated blood pressure but it did improve with Norvasc. The patient's pulses were equal in all 4 extremities. She had undergone CTA of the chest yesterday and no significant abnormalities were seen. She has remained on Lovenox daily for DVT prophylaxis. Dr. Borges was consulted regarding the patient's chest pain and he did not fill it was cardiac in nature. He felt it was more likely musculoskeletal and related to her frequent cough. Toradol was ordered as needed. Will finish serial cardiac enzymes. Dr. Ivey was consulted regarding the patient's agitation. She was unable to complete her exam since the patient was having chest pain and becoming more agitated discussing her psychiatric state. Dr. Ivey did recommend lorazepam IV if needed for agitation and close respiratory monitoring. She also stated that until she can complete her psychiatric evaluation, the patient may not leave the hospital AGAINST MEDICAL ADVICE. Dr. Ivey thinks the patient may require inpatient psychiatric hospitalization after she is medically stable. Patient continues to require Vapotherm but flow Rate and FiO2 were decreased has morning. Will monitor closely with continuous oximetry. Steroids were decreased asked night due to significant agitation. The patient was given additional doses of benzodiazepine last night for severe agitation. Azithromycin initiated yesterday 500 mg 3 days for bronchitis. No signs of pneumonia seen on CT a chest. No sinusitis seen on CT sinuses. We'll DC IV fluids regarding mild fluid overload. Give Lasix 40 mg IV 1. Check chest x-ray to rule out pulmonary edema. Dr. Ivey was consulted regarding the patient's increased anxiety and agitation. Patient reportedly stated to the nurse last night that she wanted to go to sleep for good and "I just want to ". Patient denies to me that she wants to . She states she has young children she needs to be present for. She states she is just angry at her for not being here in the hospital with her. Her mother is concerned that the patient has bipolar disorder because she has severe mood swings even when not on steroids. Echocardiogram obtained with results pending. Dr. Kruse recommended continuting to wean down oxygen to maintain >90%. The patient will need follow-up with Dr. Kruse as an outpatient for pulmonary function testing. Plan - 04/18/18 Vapotherm was discontinued yesterday. The patient is currently on 10 L high flow nasal cannula. Continue Solu-Medrol 62.5 IV to 6 hours. Continue scheduled and when necessary breathing treatments Chest pain has resolved. Troponin was negative 3. EKG did not show any acute ST segment changes. Dr. Borges did evaluate the patient and did not think her chest pain was cardiac in nature. The patient was seen yesterday by Dr. Ivey briefly. The patient was having active chest pain at the time, and Dr. Ivey plans to reevaluate the patient. Fortunately, the patient's chest pain is not felt to be cardiac in nature and her chest pain should not inhibit her from receiving antipsychotics if needed. The patient's agitation seems better this morning, possibly related to IV Ativan and decrease in steroid dose. The patient seems willing to transfer to a psychiatric hospital when she is medically stable, if needed. Will discuss today with Dr Ivey. Continue oral phosphate replacement for hypophosphatemia. Continue when necessary insulin for hyperglycemia secondary to steroids MiraLAX for constipation Recheck CBC, renal panel, and magnesium tomorrow Chest x-ray yesterday showed normal heart size. Limited depth of inspiration with crowding of the interstitial lung markings and basilar atelectasis suggested. No consolidating opacities or pleural effusions. No pneumothorax. Full evaluation per psychiatry. Recommend inpatient psychiatric stabilization due to complex nature of patient's medical condition and severity of symptoms. Patient is willing to be transferred to inpatient psychiatric hospital when medically stable. Discussed with Dr. Charles and RN that patient will require PV screen due to being uninsured. Please contact me if you have further questions/ concerns; thank you for this consult. Plan - 04/19/18 Vapotherm was discontinued 04/17/2018. In the past hour, the patient was placed on room air and oxygen saturation is 91%. She states she is breathing comfortably and would like to go for walk. Will decrease Solu-Medrol to 62.5 mg IV twice a day. She is tearful and anxious about whether or not she will need to go to inpatient psychiatric treatment. Since she is uninsured, she is also worried about whether or not she will be able to obtain the medications she needs for her asthma when she is discharged. I discussed with her that we would involve case management tomorrow to help with this issue. Although the patient is tearful, she no longer appears agitated and mood does not appear to be as labile as it was when she was on higher dose steroids. Continue to monitor oximetry continuously Continue scheduled breathing treatments Plan 04/20/18 Overall, patient is doing much better. Plan to discharge today. Evaluated by [facility] who did not feel the patient met criteria for inpatient admission at this time. An appointment at [facility] in [place] was made for 04/28/18 at 15:30 for the patient. 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 She is encouraged to call the crisis line at any time if she feels her mood is worsening. Number was provided to the patient. Case management continues to work on obtaining a nebulizer for the patient at home as well as DuoNeb treatments. Dr. Kruse was able to provide multiple samples of symbicort inhalers for the patient to use at home. Dr. Kruse recommends follow up in clinic in 1 month with possible evaluation of PFTs. Will provide slow taper of methylprednisolone for continued treatment of pulmonary inflammation. 04/20/2018-5:20 PM-I examined the patient independently. I reviewed this chart, the patient history, and the MOLD PULLER's/PA's documented findings as above. We discussed and formulated the assessment and plan as above with the additions below.-Dr. Charles The patient was seen this afternoon in her room. She is been on room air since yesterday. She states she is breathing well. Her anxiety is better. Her mood is better. She feels ready for dismissal to home. Her is here and is in agreement. She was evaluated by psychiatry at [facility] by telemedicine and felt to be stable for outpatient treatment for her mood disorder. On exam she is alert and in no acute distress. Chest reveals very minimal expiratory wheezing. Cardiovascular reveals a regular rate and rhythm. Extremities are free of edema. Impression and plan Asthma with status asthmaticus-markedly improved. She is going home with a nebulizer and she will have albuterol and ipratropium nebulizer solution that she can use 4 times a day initially and then wean down to every 2 hours as needed. She was told if she is frequently needing nebulizers every 2 hours, she needs to come back into the hospital for evaluation. She will use Symbicort 2 puffs twice a day routinely. She was notified she should not take extra doses of this medication. She will discontinue her Pulmicort. She will continue Singulair. She will be discharged on prednisolone taper. Regarding hyperglycemia, she is to drink plenty of water. She is to avoid all sugary foods and decrease carb intake. Blood sugars should improve with titrating down her dose of steroids. Regarding anxiety, she can continue her home Xanax. If her mood becomes worse, she can call the [facility] Hotline or go into [facility]. We discussed the need for follow-up appointment with primary care at [facility], per review for psychiatric care, and Dr. Kruse for pulmonology evaluation. At this time she appears stable for dismissal to home with family. Time spent with patient: greater than 35 minutes Resuscitation Status: Full Code Discharge Plan - Discharge Disposition Discharge Date: 04/20/18 Disposition: 01 Discharged Home, Self-Care *Condition: Stable for Transport Reason For Visit (Visit label in EMR): Asthma Exacerbation - Discharge Medications Medication Comments: Home Medications ALPRAZolam [Xanax] 0.5 mg PO TID PRN Albuterol/Ipratropium [Duoneb] 1 unit AEROSOL Q4H PRN Levothyroxine Tab [Synthroid] 88 mcg PO ACB Montelukast [Singulair] 10 mg PO HS Promethazine + Cod Liq [Phenergan + Codeine] 5 ml PO Q6H PRN Pulmicort 180 Mcgflexhaler 2 puff AEROSOL BID PRN Active Medications at time of Discharge Acetaminophen (Tylenol) 325 - 650 mg PO Q5H PRN Albuterol Sulfate (Proventil Neb (0.083%)) 5 mg AEROSOL Q2H PRN Albuterol/Ipratropium (Duoneb) 3 ml AEROSOL RTQID YOUNG Budesonide (Pulmicort Inhalation) 0.5 mg AEROSOL RTBID YOUNG Enoxaparin Sodium (Lovenox) 40 mg SQ DAILY YOUNG Famotidine (Pepcid) 20 mg PO BID YOUNG Insulin Aspart (Novolog) 1 - 5 unit SQ SS PRN; Protocol Ketorolac Tromethamine (Toradol Inj) 15 mg IVP Q6H PRN Levothyroxine Sodium (Synthroid) 88 mcg PO ACB YOUNG Lorazepam (Ativan Inj) 0.5 mg IVP Q6H PRN Methylprednisolone Sodium Succinate (Solu-Medrol) 62.5 mg IVP BID YOUNG Montelukast Sodium (Singulair) 10 mg PO HS YOUNG Morphine Sulfate (Morphine Sulf 2 Mg Inj) 2 mg IVP Q3-4HR PRN Nitroglycerin (Nitrostat) 0.4 mg SL Q5M PRN Polyethylene Glycol (Miralax) 17 gm PO BID YOUNG Promethazine HCl/Codeine (Phenergan + Codeine) 5 ml PO Q6H PRN Senna/Docusate Sodium (Senna Plus Tablet) 2 tab PO BID PRN Sodium Chloride (Iv Flush) 10 - 80 ml IVF PRN PRN Sodium Phosphate (K-Phos *Neutral* Tablet) 500 mg PO [facility] YOUNG Azithromycin 500mg PO WS - TREATMENT COMPLETE *Discharge Medications: New Acetaminophen [Tylenol] 650 mg PO Q5H PRN tab PRN Reason: Discomfort Albuterol Neb (0.083%) [Proventil Neb (0.083%)] 5 mg AEROSOL Q2H PRN #120 each PRN Reason: Shortness Of Air/Wheezing Famotidine [Pepcid] 20 mg PO BID #60 tab Ipratropium [place] 1 dose AEROSOL QID PRN #120 bottle PRN Reason: Dyspnea PEG 3350 17gm PACKET [Miralax] 17 gm PO BID packet methylPREDNISolone [Medrol] 4 mg PO NOTE #30 tab Lisinopril [Prinivil] 10 mg PO DAILY #30 tab Budesonide/Formoterol Fumarate [Symbicort 160-4.5 Mcg Inhaler] 2 puff INH BID #1 inhaler Continue Montelukast [Singulair] 10 mg PO HS Levothyroxine Tab [Synthroid] 88 mcg PO ACB ALPRAZolam [Xanax] 0.5 mg PO TID PRN PRN Reason: Anxiety Promethazine + Cod Liq [Phenergan + Codeine] 5 ml PO Q6H PRN PRN Reason: Cough Discontinued Albuterol/Ipratropium [Duoneb] 1 unit AEROSOL Q4H PRN PRN Reason: Shortness Of Air Pulmicort 180 Mcgflexhaler 2 puff AEROSOL BID PRN PRN Reason: Shortness Of Air - Discharge Packet/Instructions *Diet: Regular diet. Would avoid extra sugars and carbohydrates while taking steroids due to increased blood sugars. *Activity: As tolerated. *Pain Management/Treatment: Tylenol as needed. *Wound Care: None Additional Instructions: You have an appointment with Sully Mejias for an evaluation at [place] in [facility] on 04/28/18. 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 Feel free to call the crisis hotline at at any time day or night if needed. Take Symbicort inhalers as directed by Dr. Kruse. Call Dr. Kruse's office in the morning to set up an appoitment in the clinic in the next month for evaluation of PFTs. Take home medications as directed. *Expected Signs/Symptoms: Gradual improvement in breathing with consistent and proper use of medications and follow up with Dr. Kruse. *Notify Physician if: fever >101, increased difficulty breathing, change or worsening of condition, additional questions or concerns. *During Business Hours Contact: Dr. Kruse at [phone]. *After Business Hours Contact: the application integration architect physician for Dr. Kruse at [phone] or the nearest emergency department. *Pending Lab/Results: Will review at F/U Appt (Echocardiogram results) - Referrals/Follow Up *Referrals/Follow Up: Gamaliel Kruse MD [Physician] - 1 Month (Call to schedule appointment to review medications and evaluate PFTs.) Anjali Spencer APRN [Advanced Practice Nurse] - 05/01/18 - Patient Handouts Patient Handouts: Asthma (GEN) - Dismissal Complete Discharge Instructions are:: Complete Physician Narrative - Narrative Attestation Narrative: Date: 04/20/18 Time: 6431
--- NOTE | 2018-04-20 15:18 | Pulmonology Progress Note ---
Subjective Principal diagnosis: asthma exacerbation Interval history: Ptsitting up in bed, states she is doing better, less SOB and cough noted. Exam Vital signs: Temperature 96.6 F L 04/20/18 11:45 Pulse Rate 78 04/20/18 11:45 Respiratory Rate 14 04/20/18 12:22 Blood Pressure 135/73 04/20/18 11:45 Pulse Oximetry 98 04/20/18 12:22 Inpatient Medications: Generic Name Dose Route Start Last Admin Trade Name Freq PRN Reason Stop Dose Admin Acetaminophen 325 - 650 mg 04/14/18 20:21 Tylenol PO Q5H PRN Discomfort Albuterol Sulfate 5 mg 04/14/18 20:26 04/18/18 04:32 Proventil Neb (0.083%) AEROSOL 5 mg Q2H PRN Administration Shortness of air/wheezing Albuterol/Ipratropium 3 ml 04/16/18 07:00 04/20/18 12:22 Duoneb AEROSOL 3 ml RTQID YOUNG Administration Budesonide 0.5 mg 04/15/18 07:00 04/20/18 07:58 Pulmicort Inhalation AEROSOL 0.5 mg RTBID YOUNG Administration Enoxaparin Sodium 40 mg 04/15/18 09:00 04/20/18 09:11 Lovenox SQ 40 mg DAILY YOUNG Administration Famotidine 20 mg 04/18/18 21:00 04/20/18 09:11 Pepcid PO 20 mg BID YOUNG Administration Insulin Aspart 1 - 5 unit 04/14/18 20:27 04/20/18 11:40 Novolog SQ 2 unit SS PRN Administration Hyperglycemia Protocol Ketorolac Tromethamine 15 mg 04/17/18 14:19 Toradol Inj IVP 04/22/18 14:19 Q6H PRN Pain Levothyroxine Sodium 88 mcg 04/15/18 06:30 04/20/18 06:17 Synthroid PO 88 mcg ACB YOUNG Administration Lorazepam 0.5 mg 04/17/18 19:47 04/20/18 11:41 Ativan Inj IVP 0.5 mg Q6H PRN Administration Agitation Methylprednisolone Sodium Succinate 62.5 mg 04/19/18 21:00 04/20/18 09:11 Solu-Medrol IVP 62.5 mg BID YOUNG Administration Montelukast Sodium 10 mg 04/14/18 21:00 04/19/18 22:29 Singulair PO 10 mg HS YOUNG Administration Morphine Sulfate 2 mg 04/17/18 11:27 04/17/18 14:12 Morphine Sulf 2 Mg Inj IVP 2 mg Q3-4HR PRN Administration Pain Nitroglycerin 0.4 mg 04/17/18 11:28 04/17/18 13:43 Nitrostat SL 0.4 mg Q5M PRN Administration Chest pain Polyethylene Glycol 17 gm 04/18/18 10:45 04/20/18 09:12 Miralax PO Not Given BID YOUNG Promethazine HCl/Codeine 5 ml 04/14/18 20:27 04/19/18 22:29 Phenergan + Codeine PO 5 ml Q6H PRN Administration Cough Senna/Docusate Sodium 2 tab 04/14/18 20:21 Senna Plus Tablet PO BID PRN Constipation Sodium Chloride 10 - 80 ml 04/14/18 15:36 04/19/18 22:30 Iv Flush IVF 10 ml PRN PRN Administration Flushing Sodium Phosphate 500 mg 04/18/18 12:00 04/20/18 11:40 K-Phos *Neutral* Tablet PO 04/21/18 11:59 500 mg [facility] YOUNG Administration Discontinued Medications Generic Name Dose Route Start Last Admin Trade Name Freq PRN Reason Stop Dose Admin Albuterol Sulfate 2.5 mg 04/14/18 15:36 04/14/18 15:30 Proventil Neb (0.083%) AEROSOL 04/14/18 15:37 2.5 mg O ONE Administration Albuterol Sulfate 2.5 mg 04/14/18 17:04 04/14/18 17:00 Proventil Neb (0.5%) AEROSOL 04/14/18 17:05 2.5 mg O ONE Administration Albuterol/Ipratropium 3 ml 04/14/18 15:43 04/14/18 15:25 Duoneb AEROSOL 04/14/18 15:44 3 ml O ONE Administration Albuterol/Ipratropium 3 ml 04/14/18 17:01 Duoneb AEROSOL 04/14/18 17:02 O ONE Albuterol/Ipratropium 3 ml 04/15/18 07:00 Duoneb AEROSOL RTQID YOUNG Albuterol/Ipratropium 3 ml 04/14/18 23:00 04/15/18 22:53 Duoneb AEROSOL 3 ml Q4H YOUNG Administration Alprazolam 0.5 mg 04/14/18 20:27 04/17/18 15:15 Xanax PO 0.5 mg BID PRN Administration Anxiety Alprazolam 0.5 mg 04/16/18 20:25 04/16/18 20:33 Xanax PO 04/16/18 20:26 0.5 mg ONE TIME ONE Administration Azithromycin 500 mg 04/16/18 17:30 04/18/18 17:38 Zithromax PO 04/19/18 17:29 500 mg WS YOUNG Administration Famotidine 20 mg 04/14/18 21:00 04/18/18 09:13 Pepcid PO 20 mg BID YOUNG Administration Furosemide 40 mg 04/17/18 08:24 04/17/18 09:29 Lasix 40 Mg/4 Ml IVP 04/17/18 08:25 40 mg O ONE Administration Sodium Chloride 1,000 mls @ 50 mls/hr 04/14/18 20:30 04/17/18 09:32 Normal Saline IV Infused .Q20H YOUNG Infusion Lorazepam 1 mg 04/14/18 17:01 04/14/18 17:08 Ativan Inj IVP 04/14/18 17:02 1 mg O ONE Administration Lorazepam 0.5 mg 04/17/18 02:20 04/17/18 02:24 Ativan Inj IVP 0.5 mg O PRN Administration Methylprednisolone Sodium Succinate 125 mg 04/14/18 15:36 04/14/18 15:48 Solu-Medrol IVP 04/14/18 15:37 125 mg O ONE Administration Methylprednisolone Sodium Succinate 125 mg 04/14/18 21:00 04/17/18 03:52 Solu-Medrol IVP Not Given Q6HR YOUNG Methylprednisolone Sodium Succinate 62.5 mg 04/16/18 21:00 04/19/18 15:27 Solu-Medrol IVP 62.5 mg Q6HR YOUNG Administration Ondansetron HCl 4 mg 04/14/18 20:21 Zofran IVP Q6H PRN Nausea &/or vomiting Pneumococcal Polyvalent Vaccine 0.5 ml 04/15/18 17:28 Pneumovax 23 IM 04/15/18 17:29 .ONCE ONE Potassium Chloride 20 meq 04/17/18 08:24 04/17/18 09:28 K-Dur 20 Meq Tablet PO 04/17/18 08:25 20 meq O ONE Administration Sodium Chloride 3 ml 04/15/18 07:00 04/15/18 11:46 Sodium Chloride 3% Inhal AEROSOL Not Given BID YOUNG Sodium Phosphate 500 mg 04/16/18 17:30 04/17/18 11:34 K-Phos *Neutral* Tablet PO 04/17/18 12:01 500 mg [facility] YOUNG Administration - Constitutional no acute distress, obese, cooperative - Routine HEENT Exam Head: Present: normocephalic, atraumatic Eye: Present: EOMI, PERRL - Routine Neck Exam Present: supple, full ROM, trachea midline - Routine Respiratory Exam Present: decreased breath sounds, wheezes. Absent: accessory muscle use, patient mechanically ventilated Comments: faint expiratory wheezes - Routine Cardiovascular Exam Present: RRR, S1, S2, no murmur - Routine Abdominal Exam Present: soft, normoactive bowel sounds - Routine Extremities Exam Present: no edema, non tender, full ROM - Routine Back/Spine/Pelvis Exam Back/Spine: Present: full ROM - Routine Skin Exam Present: intact, dry. Absent: cyanosis - Routine Neurological Exam Present: alert, oriented X3, CN II-XII intact - Routine Psychiatric Exam Present: normal affect, normal thought process Results - Laboratory Findings Laboratory: Laboratory Results - last 48 hr 04/18/18 04/19/18 04/19/18 19:51 04:04 04:04 WBC 12.4 H RBC 4.10 Hgb 11.9 L Hct 37.2 MCV 90.7 MCH 29.0 MCHC 32.0 RDW Std Deviation 44.2 Plt Count 417 H MPV 10.4 Immature Gran % (Auto) 1.3 H Neut % (Auto) 84.2 H Lymph % (Auto) 10.0 L [place] % (Auto) 4.2 Eos % (Auto) 0.2 Baso % (Auto) 0.1 Neut # (Auto) 10.5 H Lymph # (Auto) 1.2 [place] # (Auto) 0.5 Eos # (Auto) 0.0 Baso # (Auto) 0.0 Abs Immat Gran (auto) 0.16 H Turbidity < 20 Sodium 143 Potassium 4.2 Chloride 101 Carbon Dioxide 33 H Anion Gap 9 BUN 17.0 Creatinine 0.7 GFR Calculation 92 BUN/Creatinine Ratio 24 Glucose 149 H Glucometer 317 Calculated Osmolality 280 Calcium 8.5 Phosphorus 3.7 Magnesium 2.6 H Icterus Index < 2 Albumin 3.3 L Specimen Hemolysis < 15 04/19/18 04/19/18 04/20/18 06:11 21:00 06:46 WBC RBC Hgb Hct MCV MCH MCHC RDW Std Deviation Plt Count MPV Immature Gran % (Auto) Neut % (Auto) Lymph % (Auto) [place] % (Auto) Eos % (Auto) Baso % (Auto) Neut # (Auto) Lymph # (Auto) [place] # (Auto) Eos # (Auto) Baso # (Auto) Abs Immat Gran (auto) Turbidity Sodium Potassium Chloride Carbon Dioxide Anion Gap BUN Creatinine GFR Calculation BUN/Creatinine Ratio Glucose Glucometer 137 144 117 Calculated Osmolality Calcium Phosphorus Magnesium Icterus Index Albumin Specimen Hemolysis Assessment and Plan (1) Acute hypoxemic respiratory failure Status: Acute Current Visit: Yes (2) Status asthmaticus Status: Acute Current Visit: Yes - Assessment and Plan Plan: Pt currently on EA and tolerating well. CTA negative for PE and no sinusitis on CT sinuses. Do question an overlap syndrome secondary to her smoking Hx. Previously was on a/a only at home. Gave samples of symbicort 160/4.5 2 puffs BID and instructed on use, cont neb A/A TID prn. Would benefit from an OP PFT. Needs to f/u in clinic in 3-4 weeks and can discuss a PFT at that time as she has no insurance. Continue steroids and wean over the next 1.5 weeks. - Time Spent With Patient Total time spent is greater than 50% in coordination of care (as documented) at patient's floor/unit and/or counseling patient: less than 15 minutes
[2018-04-20 15:37] VITALS: BP 151/91; TEMP 97.8
[2018-04-20 16:04] VITALS: RESP 18; O2SAT 94
[2018-04-20 16:22] VITALS: PULSE 71
--- NOTE | 2018-04-20 18:17 | Echocardiogram ---
DATE OF PROCEDURE April 17, 2018 This is a two-dimensional echo with spectral Doppler, color-flow and M-mode. It was obtained in a patient with chest pain. Left atrial dimension is normal. Left ventricular end-diastolic dimension is normal. Left ventricular wall thickness is normal. LV systolic function is normal with ejection fraction of 70%. Right atrium is normal. Right ventricle is normal. Aortic root dimension is normal. Mitral valve is morphologically normal with trace of mitral regurgitation. Aortic valve appears to be normal. Tricuspid valve shows mild tricuspid regurgitation with normal estimated pulmonary artery systolic pressure of 28. Pulmonary valve shows mild pulmonary insufficiency. There is no pericardial effusion. IMPRESSION 1. Normal LV systolic function with ejection fraction of 70%. 2. Trace of mitral regurgitation. 3. Mild tricuspid regurgitation with normal estimated pulmonary artery systolic pressure of 28. 4. Mild pulmonary insufficiency. MTDD
== END 2018-04-20 17:55 | disposition home or self-care (01) | DRG 190 ==
LOC: EDHOLD 15:16 → ED 15:16 → EDHOLD 20:15 → MED 20:20 → SUATTDRO 20:35
PROVIDERS: ADMIT Internal Medicine; ATTEND Internal Medicine